=== PATIENT | male | born 1940 | race Caucasian/White ===

== ENCOUNTER → 2018-04-16 11:16 | Outpatient (CLI) | payer MEDICARE, SELFPAY ==
--- NOTE | 2018-04-16 07:17 | PET_ITS ---
EXAMINATION: FDG PET CT INDICATIONS: A 77-year-old male with reported history of lymphoma presenting for initial staging examination. COMPARISON EXAMINATION: None available. INDEX LESION SIZE LUGANO SCORE SUV INTERPRETATION Right axilla, supraclavicular regions soft tissue adenopathy, lymph nodes 16.1 mm x 29.6 mm largest (frame 224) 4 2.5 (max) Fulfills quantitative criteria for viable neoplasm Left inguinal region 7.9 mm x 9.6 mm largest (frame 41) 5 4.2 (max) Fulfills quantitative criteria for viable neoplasm NON-INDEX LESION SIZE LUGANO SCORE SUV INTERPRETATION Lower pelvis prostate gland 27.1 mm (frame 55) X 6.0 May be further investigated with digital examination or potentially Axumin PET CT TECHNIQUE: Following the intravenous administration of 13.14 mCi of F-18 deoxyglucose via the left antecubital fossa, multiplanar image acquisitions of the neck, chest, abdomen and pelvis to level of mid thigh, obtained at one hour post radiopharmaceutical administration contemporaneously interpreted with the current CT of the neck, chest, abdomen and pelvis to level of mid thigh, dated 04/16/18 via coregistration reveal: SERUM GLUCOSE LEVEL: 110 mg/dl. HEIGHT: 71 inches. WEIGHT: 232 lbs. FINDINGS: 1. Multifocal increased FDG concentration is defined in the right axilla and right supraclavicular region generating a calculated maximum standard uptake value of 2.5. The Lugano-Deauville score is 4. The maximal axial diameter of the largest individual hypermetabolic soft tissue density on review of CT of the chest dated 04/16/18 is 16.1 mm (transverse) x 29.6 mm (AP). 2. There is enhanced fluorine-labeled glucose uptake noted in the left inguinal region. The calculated maximum standard uptake value is 4.2. The Lugano-Deauville score is 5. The maximal axial diameter of the corresponding soft tissue density on review of CT of the pelvis dated 04/16/18 is 7.9 mm (transverse) x 9.6 mm (AP). 3. There is an asymmetric increase in radiopharmaceutical concentration noted in the lower pelvis caudal to the urinary bladder contiguous to the prostate gland to the right of the midline posteriorly. The calculated maximum standard uptake value is 6.0. The Lugano-Deauville score is X. The maximal axial diameter of the metabolic abnormality on review of CT of the pelvis dated 04/16/18 is 27.1 mm (AP). 4. Normal physiologic distribution of the radiopharmaceutical is apparent in the hepatic (2.9) and splenic parenchyma, both renal units, bladder and visualized intestinal tract. There is symmetric and preserved glucose metabolism noted in the visualized portion of the frontal, occipital, temporal and parietal lobes of the cerebral cortex, as well as cerebral hemispheres and basal ganglia. Diffuse intestinal tract activity is noted throughout all four quadrants of the abdominal-pelvic retroperitoneum, mesentery consistent with normal physiologic distribution of the radiopharmaceutical. Prominent glucose metabolism is defined in the subcarinal mediastinum to the left of the midline, which appears contiguous to the left atrial myocardial appendage. There is an increase in glucose metabolism manifest in the ascending and descending thoracic, as well as abdominal aorta, most consistent with activated leukocytes associated with atherosclerotic plaque formation. Pertinent CT findings are as follows. CHEST: There is evidence of prior median sternotomy. Coronary arterial calcification is observed. Atherosclerotic calcification is defined in the thoracic aorta. The maximal axial diameter of the ascending thoracic aorta is 48.2 mm (AP). Apparent postsurgical change is defined in the right axilla associated with seroma formation with surgical clip placement. There are no parenchymal densities-nodules defined in the right-left hemithorax demonstrating discernible, quantitatively significant increased glucose metabolism. ABDOMEN AND PELVIS: The gallbladder is surgically absent. There is borderline fatty metamorphosis defined within the hepatic parenchyma. Atherosclerotic calcification is defined in the abdominal aorta without evidence of dilatation, aneurysm formation. Pelvic arterial calcification is observed. Bilateral fat-containing inguinal hernias are noted. Right and additional left inguinal soft tissue densities are ametabolic. Dystrophic calcification is manifest within the prostate gland. Retained oral contrast material is noted in the visualized intestinal tract. Calcified phlebolith formation is noted in the right-left lower hemipelvis. SKELETAL: Degenerative changes defined in the cervical, thoracic and lumbar spine demonstrate no evidence for glucose hypermetabolism. PET/PET/CT Tumor Base -Thigh Init IMPRESSION: 1. ABNORMAL EXAMINATION INDICATIVE OF MALIGNANT-VIABLE NEOPLASM. 2. Increased glucose concentration defined in the right axilla and supraclavicular lymph node distributions fulfills quantitative criteria for viable neoplasm. 3. Neoplastic infiltration appears evident in the left inguinal region corresponding to soft tissue lymph nodes. 4. Facilitated radiopharmaceutical concentration noted in the lower pelvis contiguous to the prostate gland posteriorly may be further investigated with digital examination or potentially 18F fluciclovine PET CT imaging. (Ronnie et al, Journal of Nuclear Medicine 55:1986, 2014). 5. Prominent glucose concentration observed in the ascending and descending thoracic, as well as abdominal aorta is commensurate with activated leukocytes associated with atherosclerotic plaque formation. (Padmini childs al, Clinical Nuclear Medicine 29:93, 2004). Electronic Signature Lukas Colin D.O. Electronically Signed: Lukas Colin DO at 23:26 EST Tel , Service support ,
== END ==
PROVIDERS: Visit Provider Internal Medicine Hematology & Oncology
DX: C82.14 Follicular lymphoma grade II, lymph nodes of axilla and upper limb (principal)
CPT/HCPCS: 78815; A9552

== ENCOUNTER → 2018-10-15 | Outpatient (CLI) | payer MEDICARE, SELFPAY ==
--- NOTE | 2018-10-15 10:30 | PET_ITS ---
EXAMINATION: FDG PET CT INDICATIONS: A 78-year-old male with reported history of lymphoma presenting for restaging examination. COMPARISON EXAMINATION: Previous FDG PET CT study dated 04/16/18. TECHNIQUE: Following the intravenous administration of 15.01 mCi of F-18 deoxyglucose via the right antecubital fossa, multiplanar image acquisitions of the neck, chest, abdomen and pelvis to level of mid thigh, obtained at one hour post radiopharmaceutical administration contemporaneously interpreted with the current CT of the neck, chest, abdomen and pelvis to level of mid thigh, dated 10/15/18 via coregistration and previous FDG PET study dated 04/16/18 reveal: SERUM GLUCOSE LEVEL: 93 mg/dl. HEIGHT: 70 inches. WEIGHT: 232 lbs. FINDINGS: 1. There is no quantitative scintigraphic evidence of abnormal increased glucose metabolism on meticulous inspection of whole body acquisitions to include all three axis reconstructions. 2. Normal physiologic distribution of the radiopharmaceutical is apparent in the hepatic and splenic parenchyma, both renal units, bladder and visualized intestinal tract. There is uniform distribution of the radiopharmaceutical concentration defined in the visualized cerebellar hemispheres and cerebral cortical structures.? Diffuse intestinal tract activity is noted throughout all four quadrants of the abdominal-pelvic retroperitoneum, mesentery consistent with normal physiologic distribution of the radiopharmaceutical. The previously identified hypermetabolic abnormalities noted in the right axilla and left inguinal regions are not apparent on the current examination. There is persistent visualization of the left and right ventricular myocardium and left atrial myocardial appendage. There is evidence of right-left hemithorax pleural effusions without facilitated FDG uptake identified. The prior defined morphologic-anatomic changes noted on CT of the neck, chest, abdomen and pelvis manifest on the FDG PET CT study dated 04/16/18 are essentially unchanged on the present examination. PET/PET/CT Tumor Base -Thigh Subs IMPRESSION: 1. NEGATIVE EXAMINATION. There is no definitive quantitative scintigraphic evidence of recurrent-viable neoplasm. 2. There is interim metabolic resolution of the prior defined left inguinal and right axillary hypermetabolic foci. 3. Overall, compared to the previous FDG PET study dated 04/16/18, there is current absence of defined viable neoplastic disease with an interval quantitative complete metabolic response relating to all prior defined hypermetabolic foci. Electronic Signature Lukas Colin D.O. Electronically Signed: Lukas Colin DO at 23:23 EDT Tel , Service support ,
== END | disposition home or self-care (01) ==
LOC: ONC 10:22
PROVIDERS: Referring Provider Internal Medicine Hematology & Oncology; Visit Provider Internal Medicine Hematology & Oncology
DX: C82.18 Follicular lymphoma grade II, lymph nodes of multiple sites (principal)
CPT/HCPCS: 78815; A9552

== ENCOUNTER 2019-01-23 12:23 | Inpatient (IN) | payer MEDICARE, SELFPAY ==
[2019-01-23] VITALS (10 sets, daily range): BP systolic 95–140; BP diastolic 60–90; PULSE 76–119; RESP 16–22; TEMP 36.1–36.7; O2SAT 94–98; BMI 30.7; BMI 30.4
--- NOTE | 2019-01-23 13:41 | EKG12_ITS ---
Test Reason : SOB Blood Pressure : / mmHG Vent. Rate : 102 BPM Atrial Rate : 111 BPM P-R Int : 208 ms QRS Dur : 156 ms QT Int : 420 ms P-R-T Axes : 000 -55 -08 degrees QTc Int : 547 ms Sinus tachycardia with Premature supraventricular complexes and with frequent Premature ventricular c omplexes Right bundle branch block Left anterior fascicular block Bifascicular block Abnormal ECG Confirmed by GAYLA JARRETT, KATELYN ([id number]), photograph editor RAVINDRA WEBER ([id number]) on 01/30/2019 10:14:08 AM Referred By: Joseline Joseph Confirmed By:KATELYN SHUKLA MD
--- NOTE | 2019-01-23 13:45 | RAD_ITS ---
STUDY: X-RAY CHEST REASON FOR EXAM: Male, 78 years old. Shortness of breath/dyspnea. Weakness. TECHNIQUE: Single AP portable view of the chest. COMPARISON: None. FINDINGS: EKG electrodes are seen. Surgical clips are seen in the right axillary region. There is elevation of the right hemidiaphragm. Small to moderate right pleural effusion with underlying infiltration and/or atelectasis. Question of a 4.8 cm x 4.7 cm nodular mass in the posterior medial segment of the left lower lobe. Sternal cerclage wires and vascular clips are present from a prior sternotomy and coronary artery bypass graft procedure (CABG). Moderate cardiomegaly. Normal mediastinum and lee. Normal visualized pulmonary arteries. There is atherosclerotic calcification of the aortic arch with tortuosity. There are diffuse degenerative changes of the visualized thoracic spine. Normal visualized ribs, clavicles, and shoulders. There is no demonstrated abnormality of the visualized soft tissue structures of the upper abdomen. RAD/Chest 1 View (Portable) IMPRESSION: Right pleural effusion with underlying infiltration and/or atelectasis. Questionable 4.8 cm x 4.7 cm nodular density in the posteromedial aspect of the left lower lobe. Electronically Signed: Korey Nice, at 14:11 EDT , Service support ,
[2019-01-23] MEDS: Ipratropium/Albuterol Sulfate 3 ML AMPUL.NEB INHALATION (13:47)
[2019-01-23 13:52] LABS: Absolute Lymphocyte Count 0.33 X10^3/uL (0.83-4.51); Basophil# 0.03 X10^3/uL; Basophil% 0.6 % (0-1); Eosinophil# 0.09 X10^3/uL; Eosinophils% 1.7 % (0-5); Hematocrit 36.9 % (40-54); Hemoglobin 12.1 g/dL (13.0-16.5); Lymphocyte # 0.33 X10^3/ul (4.0); Lymphocyte % 6.3 % (19-41); Mean Corp Hgb Conc 32.8 g/dL (32-36); Mean Corpuscular Hgb 31.2 pg (27.0-32.0); Mean Corpuscular Volume 95.1 fL (80-94); Mean Platelet Vol. 10.9 fl (6.2-12.0); Monocyte# 0.79 X10^3/uL; NRBC Flagged by Analyzer 0 % (0-5); Neutrophil # 4.01 X10^3/uL (2.7-7.7); Neutrophil % 76.2 % (47-70); POSITIVE DIFFERENTIAL YES; Platelet Count 220 K/mm3 (150-450); RBC Distribution Width CV 18.4 % (11.6-14.6); RBC Distribution Width SD 63.1 fl (35.1-43.9); Red Blood Count 3.88 M/mm3 (4.6-6.2); White Blood Count 5.3 K/mm3 (4.4-11.0)
[2019-01-23 13:53] LABS: Differential Indicated SCAN CRITERIA MET
[2019-01-23 14:08] LABS: Anion Gap 6 (5-15); BUN 17 mg/dL (7-18); BUN/Creat Ratio 17.2 RATIO (10-20); Chloride 106 mmol/L (98-107); Creatinine, Serum 0.99 mg/dL (0.70-1.30); EST Glomerular Filtration Rate 78 mL/min (>60); Est Glom Filt Rate - Afr Amer 94 mL/min (>60); Glucose 102 mg/dL (74-106); Sodium Level 142 mmol/L (136-145)
[2019-01-23 14:17] LABS: Hypochromasia RARE; Platelet Estimate ADEQUATE (ADEQ); Schistocytes 1+
[2019-01-23 14:38] LABS: BNP,B-Type NATRIURETIC PEPTIDE 830.1 pg/mL (0-100)
--- NOTE | 2019-01-23 14:53 | ED.VISSUMM ---
- ER Visit Summary Date of Service: 01/23/19 Chief Complaint: [Fatigue and shortness of breath] History of Present Illness: The patient is a 78 M [resents to the emergency department with increasing shortness of breath over the last 2 to 3 months. Patient seen by his oncologist today and referred to the emergency department for evaluation of his irregular and fast heart rate. Patient complains of exertional dyspnea. He denies any chest pain. Patient currently being treated for non-Hodgkin's lymphoma and his last maintenance chemo therapy was in October. Patient has history of A. fib and is currently on Xarelto. Patient with prior history of 5 vessel CABG.] Physical Examination: [HEENT-PERRLA, EOMI. Cranial nerves II through XII grossly intact. TMs clear. Mucous membranes moist. No adenopathy. Cardiovascular-regular rate with frequent ectopy. Patient has 2/6 systolic ejection murmur. Lungs-decreased breath sounds in the right base. Patient has rales in the right base. Patient has some mild tachypnea. No accessory muscle use or retractions. Abdomen-normoactive bowel sounds, soft, nontender, no rebound or rigidity, no peritoneal signs. Extremities-intact ?4, normal range of motion, normal pulses, atraumatic. Patient has +2 edema both lower extremities. Patient has ulcerations to both lower extremities and some faint erythema.] Test Results: [EKG obtained arrival shows sinus rhythm with a ventricular rate of 102 bpm with frequent PVCs noted. Chest x-ray showed right sided effusion with questionable 4.8 x 4.7 cm mass in the left lower lobe. Patient was noted to have cardiomegaly. CBC with differential showing a 5.3, hemoglobin 12, hematocrit 37, platelets 220. Chemistries unremarkable. BUN was 17 and creatinine 0.99. Troponin was 0.019. BNP was elevated at 830.] Emergency Department Course and Treatment: [Patient was given Lasix 80 mg IV.] Treatment Plan: [Admit for further treatment of suspected congestive heart failure.] Disposition: [Admit] Impression: [CHF exacerbation Generalized weakness Left lower lobe lung mass] This note was generated with [employer] dictation software. It may contain incorrect words, spelling, and punctuation that were not noted in review of the chart prior to signing ED Disposition - Plan for ED Patient: Referrals: Maggie Jain, BLUE[employer] MACHINE OPERATOR-C [Primary Care Provider] -
--- NOTE | 2019-01-23 15:10 | HP.PCM_ITS ---
History of Present Illness Date of Admission: 01/23/19 Chief Complaint: shortness of breath The patient is a 78 year old M with a past medical history as listed. He was admitted through the ED on 01/23/2019 from his oncologist office on account of an irregular and fast heart rate. Patient is being managed for non-Hodgkin's lymphoma and also has a history of A. fib on Xarelto. He complains of shortness of breath over the last 2 to 3 months which is gradually been worsening. This was worsened by exertion and relieved by rest bradycardia have any associated chest pain. He went to see his oncologist today and was found to be having an irregular and fast heart rate and so he was sent to the emergency room. History was mainly taken from patient's daughter as patient was very upset because he said he wanted food. 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 Review of systems is otherwise negative. In the ED, CBC showed hemoglobin of 12 with platelets of 220 and white cell count of 5.3. Chemistry was essentially unremarkable with creatinine of 0.99 Initial troponin was 0.019, and BNP was 830. EKG showed sinus rhythm with a heart rate of 102 and frequent PVCs and chest x-ray showed a right-sided pleural effusion with a questionable 4.8 x 4 cm mass in the left lower lobe. He has been admitted to manage for probable A. fib and acute heart failure with unknown EF. [] Past Medical History Allergies No Known Allergies Allergy (Verified 01/23/19 12:27) Home Medications: Ambulatory Orders Medication Instructions Recorded Furosemide [Lasix] 40 mg PO DAILY 01/23/19 Metoprolol Tartrate [Lopressor 12.5 mg PO DAILY 01/23/19 (beta anitha)] Multivitamin with Minerals 1 tab PO DAILY 01/23/19 [Multiple Vitamin] York-3/Dha/Epa/Fish Oil [Fish Oil 1 ea PO DAILY 01/23/19 1,000 mg Softgel] Potassium Chloride 10 meq PO DAILY 01/23/19 Rivaroxaban [Xarelto] 20 mg PO DAILY 01/23/19 Simvastatin 10 mg PO DAILY 01/23/19 Psychiatric History: No pertinent psych hx Lives: Alone Smoking Status: Former smoker Alcohol: None Drugs: None - *Family History Maternal History Items: Cancer - mother had melanoma Review of Systems Constitutional: Denies: Chills, Fever, Malaise, Weakness, Weight Change Eyes: Denies: Blurred vision HEENT: Denies: Head Aches, Sinus Congestion, Sinus Drainage Cardiovascular: Reports: Palpitations. Denies: Chest Pain, Chest Pressure, Chest Tightness, Edema, Orthopnea, Syncope Respiratory: Reports: Shortness of Breath, Shortness of breath upon exertion. Denies: Cough Gastrointestinal: Denies: Abdominal Pain, Nausea, Vomiting Genitourinary: Denies: Dysuria Musculoskeletal: Denies: Joint Pain, Joint Tenderness Skin: Denies: Rash, Wounds Neurological: Denies: Numbness, Tingling, Focal weakness Psychiatric: Denies: Anxiety, Depression, Homicidal Ideations, Suicidal Ideations Hematologic/ Lymphatic: Denies: Easy Bruising, Easy Bleeding VTE Information - Inpt Only VTE Present on Admission: No VTE Pharm Prophylaxis ordered?: Yes - Physical Exam Vitals/I&O's: Vital Signs Temp Pulse Resp BP Pulse Ox 97.9 F 84 20 H 117/80 96 01/23/19 12:24 01/23/19 14:37 01/23/19 14:37 01/23/19 14:37 01/23/19 14:37 Oxygen Delivery Method Room Air Weight: 220 lb Body Mass Index (BMI) 30.7 General: Alert, Oriented x3, Cooperative, No apparent distress HEENT: Atraumatic, PERRLA, EOMI, Normocephalic Oral: Dry Mucosa Neck: Supple, No JVD, Negative Carotid Bruits Lungs: - - Markedly decreased breath sounds in right lower lung base. No crackles. Cardiovascular: Regular Rhythm, Normal S1, Normal S2, Tachycardic Abdomen: Bowel Sounds Present, Soft, Non Tender Extremities: No clubbing, No cyanosis, No edema, Capillary Refill Less than 3 Seconds Skin: - - Skin is dry and scaly with superficial ulceration due to possible scratching of lower extremities. Mild 1+ bipedal edema Musculoskeletal: No Tenderness to Palpation of Joints or Extremities Lymphatic: No Cervical, Supraclavicular, or Inguinal Adenopathy Neurological: Cranial nerves II-XII grossly intact, Neuro grossly intact, Motor Exam 5/5 strength throughout Psych/Mental Status: Normal Affect, Appropriate, Alert and oriented to time, place, person, mood and affect Laboratory Results 01/23/19 13:25: WBC 5.3, RBC 3.88 L, Hgb 12.1 L, Hct 36.9 L, MCV 95.1 H, MCH 31.2, MCHC 32.8, RDW Std Deviation 63.1 H, RDW Coeff of Leroy 18.4 H, Plt Count 220, MPV 10.9, Immature Gran % (Auto) 0.200, Neut % (Auto) 76.2 H, Lymph % (Auto) 6.3 L, [place] % (Auto) 15.0 H, Eos % (Auto) 1.7, Baso % (Auto) 0.6, Absolute Neuts (auto) 4.0, Absolute Lymphs (auto) 0.33 L, Nucleated RBC % 0, Platelet Estimate ADEQUATE, Hypochromasia RARE, Schistocytes 1+ 01/23/19 13:25: Sodium 142, Potassium 4.0, Chloride 106, Carbon Dioxide 30.0, Anion Gap 6, BUN 17, Creatinine 0.99, Estim Creat Clear Calc 65.50, Est GFR (MDRD) Af Amer 94, Est GFR (MDRD) Non-Af 78, BUN/Creatinine Ratio 17.2, Glucose 102, Calcium 9.0, Troponin I 0.019 01/23/19 13:25: B-Natriuretic Peptide 830.1 H Diagnostic Data Chest X-Ray 01/23/19 13:45 IMPRESSION: Right pleural effusion with underlying infiltration and/or atelectasis. Questionable 4.8 cm x 4.7 cm nodular density in the posteromedial aspect of the left lower lobe. Electronically Signed: Korey Nice, at 14:11 EDT , Service support , Current Medications Sodium Chloride () 1,000 mls @ 15 mls/hr IV .Q48H [facility] Assessment/Plan 78-year-old male admitted with complaint of shortness of breath and rapid heart rate. 1. Acute on chronic heart failure * EF unknown * admit to PCU with telemetry * BNP is ~ 830. EKG showed no acute ST changes and showed sinus tachycardia with PVCs. * Initial troponin was also negative. * Cycle troponins. Diuresed with IV Lasix 40 mg twice daily * Monitor intake and output. Fluid restrictions thousand 500 cc. * 2D echo * 2. A. fib with RVR: * Patient has a history of A. fib was referred from his oncologist; office on account of rapid heart rate. * On arrival in ED, EKG showed sinus tachycardia with PVCs. * Per telemetry. 2D echo ordered. Check magnesium and potassium levels. * Currently on Xarelto. will hold. * Continue metoprolol 12.5 mg daily. * 3. History of non-Hodgkin's lymphoma * According to his daughter, he has been told that he is in remission. Diagnosed in April 2018. * He last had maintenance chemotherapy in October 2018. * Follows with Dr. Ureña. * 4. Right pleural effusion * As per x-ray. This is likely due to acute on chronic heart failure. However there was a questionable 4.8 x 4.7 cm nodular density in the posterior medial aspect of left lower lobe. It is unknown if this is new or otherwise. * he will benefit from further imaging with CAT scan once he has been diuresed to help with pleural effusion and to characterise mass better * PET scan done in October 2018 showed right and left hemithorax pleural effusions. * for CT chest tomorrow morning after he has been diuresed DVT prophylaxis: hold xarelto for now just in case he needs thoracentesis or biopsy for pleural effusion and suspected mass respectively. Lovenox Code status: full code * Patient counseled extensively about different types of CODE STATUS including full code, DNR CCA and DNR CCA. Patient elects to be full code. Total [id number] time 18 minutes. Code Visit Inpatient E&M: 67600 Init Hosp L3 Procedures: 89586 Advncd Care Plan 30 Min
[2019-01-23] MEDS: Furosemide 100 MG/10 ML Vial 80 MG IV (15:41)
--- NOTE | 2019-01-23 16:05 | ECHOCS_ITS ---
Reason For Study: CHF Procedure This was a 2D Doppler, Color Flow transthoracic echocardiogram. The study was technically difficult. Due to body habitus. Contrast injection was performed. Left Ventricle Mildly dilated left ventricle. Concentric left ventricular hypertrophy. The estimated ejection fraction is 30 %. There is evidence of diastolic dysfunction. There is moderate to severe global hypokinesis of the left ventricle. Right Ventricle Mildly dilated right ventricle. Normal systolic function. Atria The left atrium is mildly enlarged. The right atrium is mildly enlarged. No doppler evidence for ASD. Mitral Valve There is no mitral valve stenosis. No mitral valve insufficiency. Tricuspid Valve There is no tricuspid stenosis. Trivial tricuspid valve insufficiency. Pulmonary artery systolic pressure is 35 mmHg. Aortic Valve Trisinus/trileaflet aortic valve. Aortic sclerosis, no stenosis. There is no aortic stenosis. No aortic valve insufficiency. Pulmonic Valve There is no pulmonic valvular stenosis. No pulmonic valve insufficiency. Great Vessels Normal aortic root. Pericardium/Pleural No pericardial effusion. Medication Diluted definity 5.0ml given slow IV push to enhance endocardial definition. MMode/2D Measurements & Calculations LVIDd: 5.6 cm IVSd: 1.4 cm Ao root diam: 4.5 cm LVIDs: 4.4 cm LVPWd: 1.4 cm RVDd: 4.6 cm FS: 21.2 % LAV(MOD-bp): 71.7 ml LA A4 area: 22.5 cm2 LA dimension(2D): 4.6 cm LAV(MOD-bp) Indexed: 32.8 ml/m2 LAV(MOD-sp2): 73.9 ml LAV(MOD-sp4): 67.7 ml RA A4 area: 23.6 cm2 Doppler Measurements & Calculations MV E max dora: 118.0 cm/sec Ao V2 max: 114.8 cm/sec LV V1 max: 62.4 cm/sec Ao max P.3 mmHg LV V1 max P.6 mmHg MR max dora: 404.5 cm/sec PA V2 max: 70.4 cm/sec TR max dora: 198.5 cm/sec MR max P.4 mmHg TR max P.8 mmHg Interpretation Summary The study was technically difficult. Diluted definity 5.0ml given slow IV push to enhance endocardial definition. Mildly dilated left ventricle. Concentric left ventricular hypertrophy. The estimated ejection fraction is 30 %. There is evidence of diastolic dysfunction. There is moderate to severe global hypokinesis of the left ventricle. The left atrium is mildly enlarged. The right atrium is mildly enlarged. The study was technically difficult. Ordering Physician: Joseline Joseph Referring Physician: Maggie Guerra Performed By: Lala Bolden, ELEUTERIO, RVT
[2019-01-23 16:32] LABS: Magnesium 2.4 mg/dL (1.6-2.6)
[2019-01-23] MEDS: Metoprolol Tartrate 25 MG Tablet 12.5 MG PO (17:39)
[2019-01-23] MEDS: Atorvastatin Calcium 10 MG Tablet 5 MG PO (21:47)
[2019-01-24] VITALS (13 sets, daily range): BP systolic 99–121; BP diastolic 59–74; PULSE 56–118; RESP 16–18; TEMP 36.2–36.4; O2SAT 92–99
[2019-01-24] MEDS: Enoxaparin 40 MG/0.4 ML Syringe SC (05:12)
--- NOTE | 2019-01-24 05:28 | NURSING ---
Took patient on short walk around unit with use of walker, tolerated well.
[2019-01-24 06:18] LABS: Absolute Lymphocyte Count 0.32 X10^3/uL (0.83-4.51); Basophil# 0.04 X10^3/uL; Basophil% 0.8 % (0-1); Eosinophils% 1.9 % (0-5); Hemoglobin 12.1 g/dL (13.0-16.5); Lymphocyte # 0.32 X10^3/ul (4.0); Lymphocyte % 6.1 % (19-41); Mean Corpuscular Hgb 29.3 pg (27.0-32.0); Mean Corpuscular Volume 94.4 fL (80-94); Mean Platelet Vol. 10.9 fl (6.2-12.0); Monocyte% 15.3 % (0-10); NRBC Flagged by Analyzer 0 % (0-5); Neutrophil # 3.96 X10^3/uL (2.7-7.7); Neutrophil % 75.5 % (47-70); POSITIVE DIFFERENTIAL YES; Platelet Count 248 K/mm3 (150-450); RBC Distribution Width CV 17.9 % (11.6-14.6); RBC Distribution Width SD 62.6 fl (35.1-43.9); Red Blood Count 4.13 M/mm3 (4.6-6.2); White Blood Count 5.2 K/mm3 (4.4-11.0)
[2019-01-24 06:30] LABS: Differential Indicated SCAN CRITERIA MET
[2019-01-24 06:35] LABS: Anion Gap 5 (5-15); BUN 18 mg/dL (7-18); BUN/Creat Ratio 16.2 RATIO (10-20); Calcium,Total 8.8 mg/dL (8.5-10.1); Chloride 106 mmol/L (98-107); Creatinine, Serum 1.11 mg/dL (0.70-1.30); EST Glomerular Filtration Rate 68 mL/min (>60); Est Glom Filt Rate - Afr Amer 82 mL/min (>60); Estimated Creatinine Clearance 58.42 ml/min; Glucose 110 mg/dL (74-106); Magnesium 2.4 mg/dL (1.6-2.6); Potassium 3.8 mmol/L (3.5-5.1); Sodium Level 143 mmol/L (136-145)
[2019-01-24 07:13] LABS: Differential Comment SCANNED
--- NOTE | 2019-01-24 07:50 | PN_ITS ---
Subjective: The patient is a 78-year-old male who was sent to the emergency department at [facility] on 01/23/2019 from his oncologist office for an irregular fast heart rate. His past medical history is significant for non- Hodgkin's lymphoma, paroxysmal atrial fibrillation and chronic anticoagulation with Xarelto. Vital signs at presentation to the emergency department were temperature 97.9, pulse rate 118, blood pressure 121/75, respiratory rate 22 and he was 98% saturated on room air. Admitting labs showed a white blood cell count of 5.3, hemoglobin of 12.1 and normal platelets. BMP was unremarkable. The BNP was elevated at 830. Chest x-ray showed a large right pleural effusion with possible underlying infiltration and/oral atelectasis. Questionable nodular density in the posterior medial aspect of the left lower lobe. PET scan in October 2018 was negative. EKG showed sinus rhythm with a heart rate of 102 and frequent PVCs. He was admitted to the hospital with a diagnosis of acute on chronic heart failure with large right pleural effusion. He was admitted to a monitored bed on PCU and was placed on fluid restriction and IV Lasix and a 2D echocardiogram was ordered. Xarelto was placed on hold for possible diagnostic and therapeutic thoracentesis. All events of the past 24 hours been reviewed. Afebrile since admission. The heart rate is erratic and has ranged from 56-1 19 since admission. Blood pressures are stable. All lab was personally reviewed. White blood cell count remains normal at 5.2. Differential is unremarkable. Hemoglobin is stable at 12.1 and platelets remain within normal limits. The BMP once again is unremarkable. BUN is 18 with a creatinine of 1.11, up from 0.99 on 01/23/2019. Echocardiogram showed a mildly dilated left ventricle with an estimated ejection fraction of 30%. There is concentric left ventricular hypertrophy. There was evidence for diastolic dysfunction. There were no focal wall motion abnormalities and there was global hypokinesis of the left ventricle. The left atrium and right atrium were both mildly enlarged. No significant valvular heart disease. Telemetry shows AF/AFlutter with PVC's and the rate is not optimally controlled yet. - Physical Exam Vitals/I&O's: Vital Signs Temp Pulse Resp BP Pulse Ox 97.6 F L 86 16 121/74 H 92 01/24/19 03:46 01/24/19 06:00 01/24/19 03:46 01/24/19 03:46 01/24/19 03:46 Oxygen Delivery Method Room Air Weight: 218 lb 14.704 oz Body Mass Index (BMI) 30.4 Intake and Output for Last 24 Hours 01/22/19 01/23/19 01/24/19 23:59 23:59 23:59 Intake Total 240 / 240 60 / 60 Output Total 250 / 250 Balance - -10 60 / 60 General: Alert, Oriented x3, Cooperative, - - forgetful....tells me that he has been in the hospital for 3-4 days and he has only been here for 1 day HEENT: Atraumatic, PERRLA, EOMI, Normocephalic Oral: No Gingival or Mucosal Lesions/ Ulcerations Neck: Supple, No Nuchal Rigidity, Trachea Midline Lungs: No wheeze, No rales, Diminished - very diminished in the bases BL, - - There is symmetric chest expansion. He is not tachypneic, has no conversational dyspnea and is not using accessory muscles of respiration. Cardiovascular: Normal S1, Normal S2, No murmurs, Irregular Rate, No Gallop, - - Telemetry shows atrial fibrillation/flutter with rapid ventricular response. He has PVCs and occasional nonsustained ventricular tachycardia. Abdomen: Bowel Sounds Present, Soft, Non Tender, Non-Distended Extremities: No clubbing, No cyanosis, Edema - he has pitting edema of both LE's that extends into the posterior thighs. He is not elevating his legs and he has no compression stockings or TEDs on. Skin: - - he has stasis dermatitis of the Legs with dry flakey skin Neurological: Cranial nerves II-XII grossly intact, Neuro grossly intact Psych/Mental Status: Appropriate Laboratory Results 01/23/19 13:25: WBC 5.3, RBC 3.88 L, Hgb 12.1 L, Hct 36.9 L, MCV 95.1 H, MCH 31.2, MCHC 32.8, RDW Std Deviation 63.1 H, RDW Coeff of Leroy 18.4 H, Plt Count 220, MPV 10.9, Immature Gran % (Auto) 0.200, Neut % (Auto) 76.2 H, Lymph % (Auto) 6.3 L, [place] % (Auto) 15.0 H, Eos % (Auto) 1.7, Baso % (Auto) 0.6, Absolute Neuts (auto) 4.0, Absolute Lymphs (auto) 0.33 L, Nucleated RBC % 0, Platelet Estimate ADEQUATE, Hypochromasia RARE, Schistocytes 1+ 01/23/19 13:25: Sodium 142, Potassium 4.0, Chloride 106, Carbon Dioxide 30.0, Anion Gap 6, BUN 17, Creatinine 0.99, Estim Creat Clear Calc 65.50, Est GFR (MDRD) Af Amer 94, Est GFR (MDRD) Non-Af 78, BUN/Creatinine Ratio 17.2, Glucose 102, Calcium 9.0, Troponin I 0.019 01/23/19 13:25: B-Natriuretic Peptide 830.1 H 01/23/19 13:25: Magnesium 2.4 01/23/19 17:23: Troponin I 0.015 01/23/19 20:33: Troponin I 0.016 01/24/19 05:25: WBC 5.2, RBC 4.13 L, Hgb 12.1 L, Hct 39.0 L, MCV 94.4 H, MCH 29.3, MCHC 31.0 L, RDW Std Deviation 62.6 H, RDW Coeff of Leroy 17.9 H, Plt Count 248, MPV 10.9, Immature Gran % (Auto) 0.400, Neut % (Auto) 75.5 H, Lymph % (Auto) 6.1 L, [place] % (Auto) 15.3 H, Eos % (Auto) 1.9, Baso % (Auto) 0.8, Absolute Neuts (auto) 4.0, Absolute Lymphs (auto) 0.32 L, Nucleated RBC % 0, Differential Comment SCANNED 01/24/19 05:25: Sodium 143, Potassium 3.8, Chloride 106, Carbon Dioxide 32.0, Anion Gap 5, BUN 18, Creatinine 1.11, Estim Creat Clear Calc 58.42, Est GFR (MDRD) Af Amer 82, Est GFR (MDRD) Non-Af 68, BUN/Creatinine Ratio 16.2, Glucose 110 H, Calcium 8.8, Magnesium 2.4 Current Medications Albuterol Sulfate (Ventolin Aerosols) 2.5 mg INHALATION Q2H PRN PRN PRN Reason: Shortness of Breath/Wheezing Atorvastatin Calcium (Lipitor) 5 mg PO QHS REPLACED BY [facility] Last Admin: 01/23/19 21:47 Dose: 5 mg Documented by: Dextrose (D50w Syringe) 0 gm IV X1 PRN; Protocol PRN Reason: Hypoglycemia Emollient Ointment (Eucerin Intensive Repair) 1 applic TOPICAL BID REPLACED BY [facility]; Protocol Last Admin: 01/23/19 21:47 Dose: 1 applicatio Documented by: Enoxaparin Sodium (Lovenox) 40 mg SC DAILY@0600 REPLACED BY [facility] Last Admin: 01/24/19 05:12 Dose: 40 mg Documented by: Furosemide (Lasix) 40 mg IV BID@1000,1800 REPLACED BY [facility] Last Admin: 01/23/19 17:20 Dose: Not Given Documented by: Glucagon () 1 mg IM .X1 PRN PRN Reason: Hypoglycemia Sodium Chloride () 1,000 mls @ 15 mls/hr IV .Q48H REPLACED BY [facility] Last Admin: 01/23/19 15:41 Dose: Not Given Documented by: Metoprolol Tartrate (Lopressor (Beta David)) 12.5 mg PO DAILY REPLACED BY [facility] Last Admin: 01/23/19 17:39 Dose: 12.5 mg Documented by: Multivitamins/Minerals (Multivitamin With Minerals) 1 tablet PO DAILY@0800 REPLACED BY [facility] Nitroglycerin (Nitrostat) 0.4 mg SUBLINGUAL Q5M PRN PRN Reason: CARDIAC/CHEST PAIN Ybouu-9-Glee Ethyl Esters (Lovaza) 1 gm PO DAILY REPLACED BY [facility] Potassium Chloride (K-Dur) 10 meq PO DAILYCM REPLACED BY [facility] Rivaroxaban (Xarelto) 20 mg PO DAILY@1700 REPLACED BY [facility] Sodium Chloride () 10 - 40 ml IV UD PRN PRN Reason: SALINE FLUSH Medical Necessity - Tobacco Use Smoking Status: Former smoker Tobacco Use: Cigars Assessment/Plan Impressions 1. AF/flutter with RVR 2. CM with a 30% ejection fraction and a mildly dilated left ventricle. There was severe global hypokinesis of the left ventricle. There was evidence of diastolic dysfunction and there was mild enlargement of the right and left atrium. This may be secondary to a tachycardia induced cardiomyopathy. 3. Large right pleural effusion with suspected left pleural effusion. The chest film was an AP chest and it is difficult to determine if there is a mass in the left lower lobe. 4. Non-Hodgkin's lymphoma-treated by Dr. Ureña. He last had maintenance chemotherapy in October 2018. 5. Chronic anticoagulation with Xarelto-on hold for possible thoracentesis on 01/25/2019 will also hold the Lovenox started for DVT prophylaxis since the Xarelto is on hold. 6. Acute on chronic systolic congestive heart failure D/W Dtr Tessy. she is thinking with his confusion that he will no longer be able to live by himself. Assisted living vs ECF? suspect he will need to go to SNF at [place] and this will allow her some time to pick an appropriate living situation for him. will D/W the SW in the AM. US for thoracentesis in the AM PT, PTT and repeat lab in the AM Continue IV Lasix. Elevate the legs DERRICK wraps. Consult Dr. Gerardo to participate in management Increase Lopressor to 12.5 mg p.o. twice daily 1 dose of dig [address] scan of the chest for a better picture of what is going on in the bases of the lungs Code Visit Inpatient E&M: 14415 Subs Hosp L3
[2019-01-24] MEDS: Multivitamins,Ther W-Minerals Tablet 1 TABLET PO (07:51)
[2019-01-24 08:29] LABS: AST(SGOT) 9 U/L (15-37); Alanine Aminotransfer ALT/SGPT 14 U/L (16-61); Albumin, Serum 3.4 g/dL (3.2-5.0); Alkaline Phosphatase 124 U/L (45-117); Bilirubin, Direct 0.36 mg/dL (0.00-0.30); Globulin 3.9 g/dL (2.2-4.2); Magnesium 2.4 mg/dL (1.6-2.6); Protein, Total 7.3 g/dL (6.4-8.2)
--- NOTE | 2019-01-24 09:25 | CASEMGMT ---
Assessment- SW spoke with patient and completed assessment with his daughter present. Living situation- Patient lives in a 2 story home with entry steps. His laundry is in the basement. PCP: Dr Maggie Jain Specialists: Dr Thomas-Cardiology and Dr Ureña- Oncology Pharmacy: [facility] DME: [employer]? ADL's/IADL's: Patient has been managing his own medications, he drives, bathes, cooks, and cleans on his own. Past SNF/rehab: None Past HH: Not yet LW: No POA: No SW asked patient questions and his answers were short. When SW asked him about specialists he said he sees some, but SW had to work to get who they were. 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 SW is aware patient has Cancer so SW asked if he sees an Oncologist or Cancer Dr. He said, No. His daughter then spoke up and said he sees Dr Ureña for Oncology. Patient said, Oh he is a Cancer Dr.? He does not have a Healthcare POA or LW. Patient's daughter said he should have these documents. SW told him if he would like to complete them we can help him while he is here. Patient's daughter then spoke up and expressed concern with patient being home alone. She said he is obviously not caring for himself at home and he is not taking his meds right or He wouldn't be here. She is the only child that lives local the others live out of state. They all feel he should not be home alone. He has a wood burning stove and there is no way he will be able to manage that. She said his Neurologist said he is starting to show signs of Alzheimers. They have talked with him to try and get him to move, but he has not. She said he is agreeable to assisted living. They do not want him going home. SW explained that assisted living is private pay and if he goes there that is where he would live so they would need to check out facilities. senior care would need to be approved by insurance and if he is walking well insurance will not approve him to go to a shelter. The other option would be home health. NIKOLE explained what insurance pays for as far as home health. SW also mentioned [facility]. She asked about Medicaid. NIKOLE told her the income limit for community Medicaid is around $770 per month. Patient gets about $1800 a month from Social Security. NIKOLE asked patient what he though about his family's concerns. He said he is fine at home. She said he always says that as he is stubborn. NIKOLE explained SW cannot make patient do anything he does not want to do. She said she understands. NIKOLE explained we can see how he does with therapy and can go from there. Plan: At this point it is undetermined. Patient may have to go home with home health and [facility]. The [employer] can then maybe help get him on the assisted living waiver and eventually into assisted living. All of this is of course if patient agrees. NIKOLE and JULIUS CM to follow. Tess OREILLY MSW
[2019-01-24] MEDS: 0.9% Saline Lock 10 ML Syringe IV ×3 (10:07→20:28)
[2019-01-24] MEDS: Furosemide 40 MG/4 ML Vial IV ×2 (10:07→17:34)
[2019-01-24] MEDS: Omega-3 Acid Ethyl Esters 1 GM Capsule PO (10:07)
[2019-01-24] MEDS: Metoprolol Tartrate 25 MG Tablet 12.5 MG PO ×2 (10:07→21:25)
--- NOTE | 2019-01-24 16:07 | CHAPLAIN ---
Type of Pastoral Visit _x__ Initial Visit ___ Follow-up Visit ___ On-call Visit ___ General Patient Visit ___ Spiritual Assessment ___ Family Conference ___ Bereavement ___ Rapid Response ___ Code Blue ___ Other (describe below) Pastoral Care Referral From _x__ Patient ___ Family ___ Nurse ___ Physician ___ Sharepoint Designer Developer ___ Dye Tub Tender ___ Other (describe below) Sacrament/Intervention ___ Active listening ___ Anointing ___ Islam ___ Bereavement ___ Communion ___ Carolin exploration ___ ___ Life review ___ Prayer ___ Reconciliation ___ Sacrament of Sick _x__ Supportive presence ___ Wedding ___ Other (describe below) Pastoral Comments
--- NOTE | 2019-01-24 19:01 | CT_ITS ---
STUDY: CT CHEST WITHOUT CONTRAST REASON FOR EXAM: Male, 78 years old. Lymphoma. Shortness of breath. RADIATION DOSAGE (If Supplied By Facility): DLP = ( 566.83 ) mGycm TECHNIQUE: Transaxial imaging was performed without the administration of intravenous contrast material. Coronal and sagittal reformatted images were created. Individualized dose optimization techniques were used for this CT. COMPARISON: None available FINDINGS: Evaluation is limited due to motion. There is a moderate to large right-sided pleural effusion. A right perihilar consolidation is present. The left lung is clear. There is a trace left effusion. There are no pulmonary nodules or masses. There is no pneumothorax. There is mild cardiomegaly. Coronary artery calcifications are present. There is no thoracic lymphadenopathy. The ascending aorta measures 4.4 cm in diameter. Ascites is present. There are no destructive osseous lesions. CT/Chest without Contrast IMPRESSION: Limited evaluation due to motion. Moderate to large right-sided pleural effusion. Right perihilar consolidation. Trace left effusion. Mild cardiomegaly. Coronary artery calcifications. 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 Abdominal ascites. Electronically Signed: Reed Umana, at 20:05 EDT Tel , Service support ,
[2019-01-24 19:27] LABS: LDH 311 U/L (87-241)
[2019-01-24] MEDS: Digoxin 250 MCG/ML Ampul IV (20:12)
[2019-01-24] MEDS: Atorvastatin Calcium 10 MG Tablet 5 MG PO (21:23)
[2019-01-25] VITALS (11 sets, daily range): BP systolic 91–118; BP diastolic 53–76; PULSE 67–89; RESP 16–18; TEMP 36.4–36.6; O2SAT 93–100
--- NOTE | 2019-01-25 | FLU_PTH ---
PATIENT: MOOK RICHARDSON LOC: [facility] U#:[id number] AGE/SX: 78/M ROOM: [facility] RE01/23/[address]: Dr. Aiden Gutierrez MD : 1940 BED: 1 DIS: 01/26/2019 SPEC #: [id number] RECD: 01/25/19 14:03 STATUS: HANNAH RETiffany #: [id number] EDINSON: 01/25/19 00:[address]: Aiden Gutierrez DEPT: CYTOLOGY RECD BY: Boyd Gonzalez ENTERED: 01/28/19 09:25 SP TYPE: Fluid OTHR DR: MD Dr. Prem Wood MD Lindsey Lorson, CLINICAL SAFETY SPECIALIST-C Tissues: THORACIC FLUID Procedures: Special Stain Group II Surgery Specimen Level IV Cytospin Fluid HEADER OPERATION: Ultrasound guided right thoracentesis PRE-OP DIAGNOSIS: AFIB, SOB, acute exacerbation TISSUE SUBMITTED: Thoracentesis fluid for cytology DIAGNOSIS CYTOLOGY Thoracentesis fluid for cytology (cytospin and cell block): Negative for malignant cells. SHALOM:mio 01/29/19 CYTOLOGY STUDY Slides are reviewed. CYTOLOGY GROSS Received is 106 ml of yellow hazy fluid labeled with the patient's name and and designated per the requisition as thoracentesis fluid. Submitted for cytology preparation including cell block. /CC:cc 01/28/19 TC:5 CPT: 98370, 25954
--- NOTE | 2019-01-25 07:17 | PN_ITS ---
Patient Problems: Active and Suspected Problems Atrial fibrillation (Acute) LV dysfunction (Acute) Congestive heart failure (Acute) Subjective: Afebrile since admission. Vital signs are stable. He is 97% saturated on room air. Intake and output are not accurate secondary to incontinence. He denies any CP and he also denies SOB. He is going for thoracentesis today....diagnostic and therapeutic. Objective: PHYSICAL EXAM: GENERAL: alert, oriented X 3, Cooperative, NAD, forgetful but pleasant ORAL: moist mucosa, no mucosal lesions NECK: No JVD, supple, trachea midline LUNGS: very diminished in both bases, symmetric chest expansion, tachypneic, no conversational dyspnea. Able to speak in full sentences. HEART: Irregular with good rate control, Normal S1 and S2, no rub, no gallop. Frequent PVCs and atrial fibrillation on telemetry. No sustained ventricular tachycardia ABDOMEN: soft, NT, ND, BS present, no guarding with palpation EXTREMITIES: + edema to the thighs BL, no cyanosis, no calf tenderness SKIN: No rashes, no breakdown NEUROLOGIC: no focal neurologic deficits PSYCH: appropriate, normal affect, pleasant - Physical Exam Vitals/I&O's: Vital Signs Temp Pulse Resp BP Pulse Ox 97.8 F 73 16 104/76 97 01/25/19 03:25 01/25/19 03:25 01/25/19 03:25 01/25/19 03:25 01/24/19 21:25 Oxygen Delivery Method Room Air Weight: 218 lb 14.704 oz Body Mass Index (BMI) 30.4 Intake and Output for Last 24 Hours 01/23/19 01/24/19 01/25/19 23:59 23:59 23:59 Intake Total 240 / 240 1760 / 1760 Output Total 250 / 250 200 / 200 Balance -10 / -10 1560 / 1560 Laboratory Results 01/24/19 05:25: Magnesium 2.4, Total Bilirubin 1.00, Direct Bilirubin 0.36 H, AST 9 L, ALT 14 L, Alkaline Phosphatase 124 H, Total Protein 7.3, Albumin 3.4, Globulin 3.9 01/24/19 05:25: Lactate Dehydrogenase 311 H 01/25/19 06:18: Sodium Pending, Potassium Pending, Chloride Pending, Carbon Dioxide Pending, Anion Gap Pending, BUN Pending, Creatinine Pending, Est GFR (MDRD) Af Amer Pending, Est GFR (MDRD) Non-Af Pending, BUN/Creatinine Ratio Pending, Glucose Pending, Calcium Pending, Total Bilirubin Pending, AST Pending, ALT Pending, Alkaline Phosphatase Pending, Total Protein Pending, Albumin Pending 01/25/19 06:18: PT Pending, INR Pending, APTT Pending Current Medications Albuterol Sulfate (Ventolin Aerosols) 2.5 mg INHALATION Q2H PRN PRN PRN Reason: Shortness of Breath/Wheezing Atorvastatin Calcium (Lipitor) 5 mg PO QHS [facility] Last Admin: 01/24/19 21:23 Dose: 5 mg Documented by: Dextrose (D50w Syringe) 0 gm IV X1 PRN; Protocol PRN Reason: Hypoglycemia Emollient Ointment (Eucerin Intensive Repair) 1 applic TOPICAL BID [facility]; Protocol Last Admin: 01/24/19 21:22 Dose: 1 applicatio Documented by: Furosemide (Lasix) 40 mg IV BID@1000,1800 [facility] Last Admin: 01/24/19 17:34 Dose: 40 mg Documented by: Glucagon () 1 mg IM .X1 PRN PRN Reason: Hypoglycemia Sodium Chloride () 1,000 mls @ 15 mls/hr IV .Q48H [facility] Last Admin: 01/23/19 15:41 Dose: Not Given Documented by: Metoprolol Tartrate (Lopressor (Beta David)) 12.5 mg PO BID [facility] Last Admin: 01/24/19 21:25 Dose: 12.5 mg Documented by: Multivitamins/Minerals (Multivitamin With Minerals) 1 tablet PO DAILY@0800 [facility] Last Admin: 01/24/19 07:51 Dose: 1 tablet Documented by: Nitroglycerin (Nitrostat) 0.4 mg SUBLINGUAL Q5M PRN PRN Reason: CARDIAC/CHEST PAIN Nutritional Formula (Lactose Free) (Ensure Enlive) 120 ml PO 4X/DAY [facility] Last Admin: 01/24/19 21:22 Dose: 120 ml Documented by: Tdnsy-2-Nghu Ethyl Esters (Lovaza) 1 gm PO DAILY [facility] Last Admin: 01/24/19 10:07 Dose: 1 gm Documented by: Potassium Chloride (K-Dur) [facility] Last Admin: 01/24/19 07:51 Dose: 10 meq Documented by: Rivaroxaban (Xarelto) 20 mg PO DAILY@1700 [facility] Sodium Chloride () 10 - 40 ml IV UD PRN PRN Reason: SALINE FLUSH Last Admin: 01/24/19 20:28 Dose: 10 ml Documented by: Medical Necessity - Tobacco Use Smoking Status: Former smoker Tobacco Use: Cigars Assessment/Plan All Active Problems Atrial fibrillation (Acute) LV dysfunction (Acute) Congestive heart failure (Acute) Impressions 1. AF/flutter with RVR 2. CM with a 30% ejection fraction and a mildly dilated left ventricle. There was severe global hypokinesis of the left ventricle. There was evidence of diastolic dysfunction and there was mild enlargement of the right and left atrium. This may be secondary to a tachycardia induced cardiomyopathy. 3. Large right pleural effusion with suspected left pleural effusion. The chest film was an AP chest and it is difficult to determine if there is a mass in the left lower lobe. 4. Non-Hodgkin's lymphoma-treated by Dr. Ureña. He last had maintenance chemotherapy in October 2018. 5. Chronic anticoagulation with Xarelto-on hold for possible thoracentesis on 01/25/2019 will also hold the Lovenox started for DVT prophylaxis since the Xarelto is on hold. 6. Acute on chronic systolic congestive heart failure 7. Hypokalemia-will supplement Thoracentesis today. Dr. Darden will consult today. Lab on the pleural fluid ordered. Restart the Xarelto in the AM Recheck BMP in the AM Code Visit Inpatient E&M: 49564 Subs Hosp L2
[2019-01-25 07:31] LABS: International Normalized Ratio 1.3; Prothrombin Time (Protime)PT. 15.7 SECONDS (11.7-14.9)
[2019-01-25 07:32] LABS: ALB/GLOB Ratio 0.9 RATIO (0.9-2.4); AST(SGOT) 7 U/L (15-37); Alanine Aminotransfer ALT/SGPT 14 U/L (16-61); Albumin, Serum 3.1 g/dL (3.2-5.0); Alkaline Phosphatase 119 U/L (45-117); Anion Gap 7 (5-15); BUN 20 mg/dL (7-18); BUN/Creat Ratio 18.5 RATIO (10-20); Calcium,Total 8.5 mg/dL (8.5-10.1); Chloride 105 mmol/L (98-107); Creatinine, Serum 1.08 mg/dL (0.70-1.30); EST Glomerular Filtration Rate 70 mL/min (>60); Est Glom Filt Rate - Afr Amer 85 mL/min (>60); Estimated Creatinine Clearance 60.04 ml/min; Globulin 3.6 g/dL (2.2-4.2); Glucose 102 mg/dL (74-106); Partial Thromboplast Time 34.3 Seconds (24.1-36.2); Potassium 3.4 mmol/L (3.5-5.1); Protein, Total 6.7 g/dL (6.4-8.2); Sodium Level 142 mmol/L (136-145)
--- NOTE | 2019-01-25 08:53 | CASEMGMT ---
NIKOLE spoke with patient this am. He was sitting up in his chair. SW talked with him about Healthcare POA papers. He said he would want his daughter Tessy as his POA. SW asked if he would like an alternate in case she is not available. He said his oldest son. He said his daughter will be coming in, in a little bit. His breakfast tray was then delivered. SW will check back when his daughter is present. Tess OREILLY MSW
[2019-01-25] MEDS: Omega-3 Acid Ethyl Esters 1 GM Capsule PO (08:55)
[2019-01-25] MEDS: Multivitamins,Ther W-Minerals Tablet 1 TABLET PO (08:55)
[2019-01-25] MEDS: Metoprolol Tartrate 25 MG Tablet 12.5 MG PO ×2 (10:15→22:46)
[2019-01-25] MEDS: 0.9% Saline Lock 10 ML Syringe IV (10:54)
[2019-01-25] MEDS: Furosemide 40 MG/4 ML Vial IV (10:54)
--- NOTE | 2019-01-25 11:12 | CASEMGMT ---
NIKOLE called patient's daughter as she has not come to [facility] yet. NIKOLE left her a voice mail requesting she return NIKOLE's call. Patient does not need therapy at d/c. Tess HANSON
--- NOTE | 2019-01-25 13:15 | RAD_ITS ---
STUDY: X-RAY CHEST REASON FOR EXAM: Male, 78 years old. Chest pain TECHNIQUE: Frontal view of the chest COMPARISON: X-ray chest January 23, 2019 FINDINGS: Post CABG changes are present. Stable bibasilar infiltrates with small effusions are present. The heart is enlarged. Osseous structures are unremarkable. RAD/Chest Insp/Exp 2 View IMPRESSION: Stable bibasilar infiltrates with small bilateral effusions. Cardiomegaly. Electronically Signed: Reed Umana, at 19:33 EDT Tel , Service support ,
--- NOTE | 2019-01-25 13:38 | CASEMGMT ---
SW received a return phone call from patient's daughter, Tessy. SW explained to her that patient is not going to qualify for skilled care at a custodial as he is doing well with therapy. Therapy is actually indicating he will not need therapy at discharge. NIKOLE told her SW's idea of setting up home health and [facility]. NIKOLE told her a SW can assist in helping him apply for Medicaid if SW cannot get that done while he is here. SW will also make a referral to [facility] for a terminal computer operator care assessment. In the end it is hopeful he could get into assisted living on a waiver and he will still be in agreement with this plan. NIKOLE told her this would not be immediate, but at least something would be started. She was thankful that this would at least be a start. NIKOLE also told her SW spoke with patient about healthcare POA and he wants her to be his POA for healthcare. SW told her we can get these papers signed before he leaves. She was going to try and come in today to see patient and talk with the doctor. She was in agreement with [facility] and [facility]. SW will obviously need to talk with patient to make sure he is in agreement. NIKOLE called [facility] and made a referral for penitentiary, SW, and aide. NIKOLE also spoke with Giorgio with [facility] and they will also follow. Plan: Home with [facility] penitentiary, SW, and aide as well as [facility]. SW will also make a referral to [facility] for a terminal computer operator care assessment. NIKOLE does need to check with patient to make sure he is in agreement. Tess OREILLY MESS ATTENDANT CREW
--- NOTE | 2019-01-25 13:59 | CON.PCM_ITS ---
Problem List (1) Atrial fibrillation Status: Acute (2) LV dysfunction Status: Acute (3) Congestive heart failure Status: Acute Qualifiers: Heart failure type: systolic Reason for Consult Date of Consultation: 01/25/19 History of Present Illness: The patient is a 78-year-old male who was sent to the emergency department at [facility] on 01/23/2019 from his oncologist office for an irregular fast heart rate. His past medical history is significant for non- Hodgkin's lymphoma, paroxysmal atrial fibrillation and chronic anticoagulation with Xarelto. Vital signs at presentation to the emergency department were temperature 97.9, pulse rate 118, blood pressure 121/75, respiratory rate 22 and he was 98% saturated on room air. Admitting labs showed a white blood cell count of 5.3, hemoglobin of 12.1 and normal platelets. BMP was unremarkable. The BNP was elevated at 830. Chest x-ray showed a large right pleural effusion with possible underlying infiltration and/oral atelectasis. Questionable nodular density in the posterior medial aspect of the left lower lobe. PET scan in October 2018 was negative. He was admitted to the hospital with a diagnosis of acute on chronic heart failure with large right pleural effusion. He was admitted to a monitored bed on PCU and was placed on fluid restriction and IV Lasix and a 2D echocardiogram was ordered. Xarelto was placed on hold for possible diagnostic and therapeutic thoracentesis. Echocardiogram showed a mildly dilated left ventricle with an estimated ejection fraction of 30%. There is concentric left ventricular hypertrophy. There was evidence for diastolic dysfunction. There were no focal wall motion abnormalities and there was global hypokinesis of the left ventricle. The left atrium and right atrium were both mildly enlarged. No significant valvular heart disease. There is also mention of 5 vessel CABG in the ER physician note. Patient was apparently following with Dr. Donovan and now follows with his nurse practitioner. Patient does not want to cooperate with a good history. He denied any symptoms. He says that he was told in the past that he has a weak heart. Review of systems: Patient is not able to cooperate with good review of systems. Past Medical History Allergies/Adverse Reactions: Allergies No Known Allergies Allergy (Verified 01/23/19 12:27) Home Medications: Ambulatory Orders Medication Instructions Recorded Furosemide [Lasix] 40 mg PO DAILY 01/23/19 Metoprolol Tartrate [Lopressor 12.5 mg PO DAILY 01/23/19 (beta anitha)] Multivitamin with Minerals 1 tab PO DAILY 01/23/19 [Multiple Vitamin] [place]-3/Dha/Epa/Fish Oil [Fish Oil 1 ea PO DAILY 01/23/19 1,000 mg Softgel] Potassium Chloride 10 meq PO DAILY 01/23/19 Rivaroxaban [Xarelto] 20 mg PO DAILY 01/23/19 Simvastatin 10 mg PO DAILY 01/23/19 Psychiatric History: No pertinent psych hx - *Family History Maternal History Items: Cancer - mother had melanoma Lives: Alone Smoking Status: Former smoker Tobacco Use: Cigars Alcohol: None Drugs: None Objective: Vital Signs Temp Pulse Resp BP Pulse Ox 97.6 F L 67 18 108/54 L 96 01/25/19 09:25 01/25/19 13:25 01/25/19 13:25 01/25/19 13:25 01/25/19 09:25 Oxygen Delivery Method [3] Room Air Oxygen Delivery Method [2] Room Air Oxygen Delivery Method [1 ( Room Air Initial Baseline)] Oxygen Delivery Method Room Air Weight: 218 lb 14.704 oz Body Mass Index (BMI) 30.4 Intake and Output for Last 24 Hours 01/23/19 01/24/19 01/25/19 23:59 23:59 23:59 Intake Total 240 / 240 1760 / 1760 420 / 420 Output Total 250 / 250 200 / 200 3 / 3 Balance -10 1560 / 1560 417 / 417 General: Non-Cooperative HEENT: Atraumatic Neck: Supple Lungs: Clear to auscultation Cardiovascular: Irregular Rhythm Abdomen: Soft Extremities: Bilateral Edema +2 Skin: No Rashes 01/25/19 06:18: Sodium 142, Potassium 3.4 L, Chloride 105, Carbon Dioxide 30.0, Anion Gap 7, BUN 20 H, Creatinine 1.08, Est GFR (MDRD) Af Amer 85, Est GFR (MDRD) Non-Af 70, BUN/Creatinine Ratio 18.5, Glucose 102, Calcium 8.5, Total Bilirubin 1.10 H 01/25/19 06:18: PT 15.7 H, INR 1.3, APTT 34.3 Rhythm: EKG: ECHO: Stress Test: Cardiac Cath: PCI: CT Surgery: Holter monitor: EPS: PPM: CXR: Chest CT Scan: Assessment/Plan 1. Atrial fibrillation: Patient is already on Xarelto. His heart rate is better on current regimen. Continue metoprolol at this time. 2. LV dysfunction: This could be related to tachycardia induced cardiomyopathy as patient did not know he had a fast heart rate when he presented to his oncologist office. However while his history is somewhat unreliable he does seem to think that he was told in the past that he has weakness in his heart muscle. We should get records from his donations attendant office. However this may not change his current management at this time and this could also be done as an outpatient. For now I agree with continuing IV Lasix as patient appears to be still volume overloaded. No DERRICK inhibitors yet because of borderline blood pressure. We will consider starting this prior to discharge. As an outpatient, if patient has not had any work-up for his LV dysfunction then we can consider coronary angiography if he is a candidate at that time from an oncology standpoint. 3. CAD: ER note mentions history of CABG. Appears stable from the standpoint at this time.
[2019-01-25 14:19] LABS: Body Fluid Mononuclear WBC % 55.5 %; Body Fluid Polynuclear WBC # 0.008 10^3/uL; Body Fluid Polynuclear WBC % 44.5 %; Body Fluid Total Cells Counted 0.021 10^3/ul; White Blood Count/Body Fluid 0.018 10^3/uL
[2019-01-25 14:51] LABS: Appearance/Body Fluid SL CLDY; Color/Body Fluid YELLOW; Source- Body Fluid THORACENTESIS
[2019-01-25 14:53] LABS: Red Cell Count/Body Fluid 565 /mm3
--- NOTE | 2019-01-25 15:04 | CASEMGMT ---
SW spoke with patient regarding home health care and [facility]. He was in agreement with trying this plan. SW also completed Healthcare POA with patient. Copies were made and given to patient along with originals. A copy was also placed in his chart. Patient's mental status is questionable at times, however SW feels he was alert and oriented enough to complete Healthcare POA papers. Plan: d/c to home with [facility] jail, SW, and aide. Referral was made to [facility]. SW will make referral to [facility] for salvage determiner care assessment. Tess OREILLY PRODUCTION ADMINISTRATIVE ASSISTANT
[2019-01-25 15:40] LABS: Lymphocytes 28 %; Macrophages 40 %; Neutrophil (Segs) 32 %
[2019-01-25 15:41] LABS: Auto B Fluid Analyzer BKGD Ct COUNTS W/IN LIMITS (W/IN LIMITS)
[2019-01-25 15:43] LABS: Glucose, Body Fluid 131 mg/dL (40-70); LDH,Body Fluid 69 Units/l (Not Establ.)
--- NOTE | 2019-01-25 18:47 | US_ITS ---
PROCEDURE: ULTRASOUND GUIDED THORACENTESIS. DATE: January 25, 2019. INDICATION: Male, 78 years old. Right pleural effusion PHYSICIAN: Korey Nice M.D. PROCEDURE: The risks, benefits, and alternatives to the procedure were explained to the patient. The specific risks of bleeding, infection, and pneumothorax requiring chest tube insertion were discussed and accepted. Written informed consent was obtained. Ultrasonographic evaluation of the right lower pleural space was carried out. An adequate pocket was identified. The patient was placed in the sitting, upright position. The overlying skin was prepped and draped in sterile fashion. 1% lidocaine was administered subcutaneously for local anesthesia. Under ultrasound guidance, a 5 [place] thoracentesis needle/catheter system was advanced into the right posterior lower pleural fluid collection. Approximately 1170 mL of diane-colored fluid was drained. The catheter was removed, and a sterile dressing was applied. A specimen was collected and sent to the laboratory for analysis, as requested by the referring clinician. The patient tolerated the procedure well. A chest x-ray was ordered. US/Thoracentesis W US IMPRESSION: Ultrasound-guided right thoracentesis. Electronically Signed: Korey Nice, at 14:20 EDT , Service support ,
[2019-01-25] MEDS: Atorvastatin Calcium 10 MG Tablet 5 MG PO (22:46)
[2019-01-26 02:59] VITALS: PULSE 88
[2019-01-26 04:30] VITALS: BP 100/59; PULSE 81; RESP 18; TEMP 36.5; O2SAT 95
[2019-01-26 06:05] LABS: Anion Gap 4 (5-15); BUN 27 mg/dL (7-18); BUN/Creat Ratio 22.3 RATIO (10-20); Calcium,Total 8.6 mg/dL (8.5-10.1); Chloride 105 mmol/L (98-107); Creatinine, Serum 1.21 mg/dL (0.70-1.30); EST Glomerular Filtration Rate 62 mL/min (>60); Est Glom Filt Rate - Afr Amer 75 mL/min (>60); Estimated Creatinine Clearance 53.59 ml/min; Glucose 121 mg/dL (74-106); Sodium Level 141 mmol/L (136-145)
[2019-01-26 07:00] VITALS: PULSE 82
[2019-01-26 09:20] VITALS: BP 102/68; PULSE 71; RESP 18; TEMP 36.3; O2SAT 95
[2019-01-26] MEDS: Furosemide 40 MG/4 ML Vial IV (09:20)
[2019-01-26] MEDS: 0.9% Saline Lock 10 ML Syringe IV (09:20)
[2019-01-26 09:21] VITALS: PULSE 78
[2019-01-26] MEDS: Metoprolol Tartrate 25 MG Tablet 12.5 MG PO (09:21)
[2019-01-26] MEDS: Multivitamins,Ther W-Minerals Tablet 1 TABLET PO (09:21)
[2019-01-26] MEDS: Omega-3 Acid Ethyl Esters 1 GM Capsule PO (09:21)
--- NOTE | 2019-01-26 10:57 | PN.CARD_ITS ---
Subjectve: Pleasant gentleman in no distress Objective: Vital Signs Temp Pulse Resp BP Pulse Ox 97.4 F L 78 18 102/68 95 01/26/19 09:20 01/26/19 09:21 01/26/19 09:20 01/26/19 09:20 01/26/19 09:20 Oxygen Delivery Method [3] Room Air Oxygen Delivery Method [2] Room Air Oxygen Delivery Method [1 ( Room Air Initial Baseline)] Oxygen Delivery Method Room Air Weight: 215 lb 6.266 oz Body Mass Index (BMI) 30.4 Intake and Output for Last 24 Hours 01/24/19 01/25/19 01/26/19 23:59 23:59 23:59 Intake Total 1760 / 1760 960 / 960 240 / 240 Output Total 200 / 200 1173 / 1173 Balance 1560 / 1560 -213 / -213 240 / 240 General: Awake, Alert, Oriented x 3 HEENT: PERRL, EOMI, Sclera Non Icteric Neck: Supple, Good ROM, No Lymph Node Enlargement Lungs: Clear to auscultation Cardiovascular: Regular Rhythm, Normal S1, Normal S2, No Murmurs, No Rubs, No Gallops Vascular: No Carotid Bruits, Normal Femoral Pulses, Normal Radial Pulses, Normal Dorsalis Pedal Pulse, Normal Posterior Tibial Pulses Abdomen: Bowel Sounds Present, Soft, Non Tender, No HSM, No Organomegaly Extremities: No Cyanosis, No Clubbing, No edema Musculoskeletal: No Erythema Skin: No Rashes Lymphatic: No Lymph Node Enlargement Neurological: No Focal Motor or Sensory Deficit Psych/Mental Status: Appropriate 01/26/19 05:15: Sodium 141, Potassium 4.0, Chloride 105, Carbon Dioxide 32.0, Anion Gap 4 L, BUN 27 H, Creatinine 1.21, Est GFR (MDRD) Af Amer 75, Est GFR (MDRD) Non-Af 62, BUN/Creatinine Ratio 22.3 H, Glucose 121 H, Calcium 8.6 Rhythm: EKG: ECHO: Stress Test: Cardiac Cath: PCI: CT Surgery: Holter monitor: EPS: PPM: CXR: Chest CT Scan: Medical Necessity - Tobacco Use Smoking Status: Former smoker Tobacco Use: Cigars Assessment/Plan 1. Atrial fibrillation: Patient is already on Xarelto. His heart rate is mayank r on current regimen. Continue metoprolol at this time. 2. LV dysfunction: This could be related to tachycardia induced cardiomyopathy as patient did not know he had a fast heart rate when he presented to his oncologist office. However while his history is somewhat unreliable he does seem to think that he was told in the past that he has weakness in his heart muscle. We should get records from his insurance and financial services agent office. However this may not change his current management at this time and this could also be done as an outpatient. * Will recommend low-dose DERRICK inhibitor * Switch to p.o. Lasix 3. CAD: ER note mentions history of CABG. Appears stable from the standpoint at this time. Thank you for allowing me to participate in the care of your patient. Please don't hesitate to call if any issues arise
[2019-01-26 11:00] VITALS: PULSE 90
--- NOTE | 2019-01-26 11:48 | PCM.DC ---
- Discharge Diagnoses Current Active Problems: Current Active and Chronic Problems Atrial fibrillation (Acute) LV dysfunction (Acute) Congestive heart failure (Acute) You will use the following diet at home:: Cardiac Your food should be the consistency of: Regular Discharge Activity: May Not Drive Weight Bearing Status: Weight bearing as tolerated Call your doctor if you observe: Fever of 101 or Higher, Numbness or Tingling, Change in Color, Inability to have a bowel movement, Shortness of breath, Fainting spells, Swelling in the ankles, Chest pain, Increased palpitations (irregular heartbeat), Uncontrolled pain Instructions: Thoracentesis Allergies/Adverse Reactions: Allergies No Known Allergies Allergy (Verified 01/23/19 12:27) Medications to take at Discharge Metoprolol Tartrate [Lopressor (beta anitha)] 12.5 mg PO DAILY 01/23/19 Multivitamin with Minerals [Multiple Vitamin] 1 tab PO DAILY 01/23/19 [place]-3/Dha/Epa/Fish Oil [Fish Oil 1,000 mg Softgel] 1 ea PO DAILY 01/23/19 Rivaroxaban [Xarelto] 20 mg PO DAILY 01/23/19 Simvastatin 10 mg PO DAILY 01/23/19 Furosemide [Lasix] 40 mg PO BID #60 tab 01/26/19 Lisinopril [Zestril] 2.5 mg PO DAILY #30 tab 01/26/19 Potassium Chloride 20 meq PO DAILY #30 capsule.er 01/26/19 The following prescriptions were given: Furosemide [Lasix] 40 mg PO BID #60 tab Transmission Status: Pending to [facility] Potassium Chloride 20 meq PO DAILY #30 capsule.er Transmission Status: Pending to [facility] Lisinopril [Zestril] 2.5 mg PO DAILY #30 tab Transmission Status: Pending to [facility] Primary Care Physician: Maggie Jain NP-C [Primary Care Provider] - Please follow up with your Primary Care Physician in: IN 1-2 WEEK Test Results: Test results from this visit will be discussed in further detail at your follow-up appointment, if applicable. Please Follow Up With: Maggie Jain NP-C Please Follow Up With: Drake Marroquin MD When: in 4 week
--- NOTE | 2019-01-26 11:49 | DS.PCM_ITS ---
Discharge Date and Diagnosis - Problem List Patient Problems: Active and Suspected Problems Atrial fibrillation (Acute) LV dysfunction (Acute) Congestive heart failure (Acute) Date of Admission: 01/23/19 Date of Discharge: 01/26/19 - Primary Discharge Diagnosis Active and Suspected Problems Atrial fibrillation (Acute) LV dysfunction (Acute) Congestive heart failure (Acute) Hospital Course and Treatment Summary of Care Provided: The patient is a 78 year old M with history of non-Hodgkin's lymphoma being managed by Dr. Ureña was admitted from oncologist office on account of irregular fast heartbeat consistent with A. fib with RVR. Patient has history of chronic A. fib on Xarelto. Patient also has gradual worsening of shortness of breath for about 2 to 3 months. [] impressions 1. AF/flutter with RVR: Patient seen by car wash manager. Heart rate is controlled. Currently on metoprolol 12.5 mg twice daily. On Xarelto resumed after thoracocentesis 2. Acute on chronic systolic and diastolic heart failure: Nonischemic cardiomyopathy with a 30% ejection fraction and a mildly dilated left ventricle. There was severe global hypokinesis of the left ventricle. There was evidence of diastolic dysfunction and there was mild enlargement of the right and left atrium. This may be secondary to a tachycardia induced cardiomyopathy. Discharged on Lasix 40 mg twice daily with potassium supplement. Seen by car wash manager. 3. Large right pleural effusion with suspected left pleural effusion. Patient had thoracocentesis of 1170 fluid consistent with transudate. 4. Non-Hodgkin's lymphoma-treated by Dr. Ureña. He last had maintenance chemotherapy in October 2018. 5. Hypokalemia-K supplemented. Repeat K normal, 4.0 Discharge medication reconciliation done. Discharge follow-up instructions completed. Discharge process discussed with the patient and all questions were answered to patient's satisfaction. Prescription for Lasix, low-dose lisinop ril 2.5 mg daily and potassium supplement, sent to patient's pharmacy Total time spent, exact 35 minutes on discharge meds reconciliation, examination, review of imaging and blood test and discussion with the patient on follow-up instructions. Active Medications Albuterol Sulfate (Ventolin Aerosols) 2.5 mg INHALATION Q2H PRN PRN PRN Reason: Shortness of Breath/Wheezing Atorvastatin Calcium (Lipitor) 5 mg PO QHS [facility]EE[facility] Last Admin: 01/25/19 22:46 Dose: 5 mg Documented by: Dextrose (D50w Syringe) 0 gm IV X1 PRN; Protocol PRN Reason: Hypoglycemia Emollient Ointment (Eucerin Intensive Repair) 1 applic TOPICAL BID [facility]; Protocol Last Admin: 01/26/19 09:21 Dose: 1 applicatio Documented by: Furosemide (Lasix) 40 mg PO BID@1000,1800 [facility] Glucagon () 1 mg IM .X1 PRN PRN Reason: Hypoglycemia Sodium Chloride () 1,000 mls @ 15 mls/hr IV .Q48H [facility] Last Admin: 01/25/19 14:52 Dose: Not Given Documented by: Lisinopril (Zestril) 2.5 mg PO DAILY [facility] Magnesium Hydroxide (Milk Of Magnesia) 30 ml PO DAILY PRN PRN PRN Reason: Constipation Metoprolol Tartrate (Lopressor (Beta David)) 12.5 mg PO BID [facility] Last Admin: 01/26/19 09:21 Dose: 12.5 mg Documented by: Multivitamins/Minerals (Multivitamin With Minerals) 1 tablet PO DAILY@0800 [facility] Last Admin: 01/26/19 09:21 Dose: 1 tablet Documented by: Nitroglycerin (Nitrostat) 0.4 mg SUBLINGUAL Q5M PRN PRN Reason: CARDIAC/CHEST PAIN Nutritional Formula (Lactose Free) (Ensure Enlive) 120 ml PO 4X/DAY [facility] Last Admin: 01/26/19 09:21 Dose: 120 ml Documented by: [id number] Ethyl Esters (Lovaza) 1 gm PO DAILY [facility] Last Admin: 01/26/19 09:21 Dose: 1 gm Documented by: Rivaroxaban (Xarelto) 20 mg PO DAILY@1700 [facility] Sodium Chloride () 10 - 40 ml IV UD PRN PRN Reason: SALINE FLUSH Last Admin: 01/26/19 09:20 Dose: 10 ml Documented by: Laboratory Results 01/25/19 13:30: Fluid Glucose 131 H, Fluid Total Protein 3.0, Fluid LDH 69 01/25/19 13:30: Fluid Source THORACENTESIS, Fluid Color YELLOW, Fluid Appearance SL CLDY, Fluid WBC 0.018, Fluid RBC 565, Fluid Tot Cell Count 0.021, Fld Polynuclear WBCs # 0.008, Fld Polynuclear WBCs % 44.5, Fluid Mononuclear WBCs 0.010, Fld Mononuclear WBCs % 55.5, Fluid Neutrophils 32, Fluid Lymphocytes 28, Fluid Macrophages 40, Fl Pathologist Comment May follow, Fluid Comment 2 SEE COMMENT 01/26/19 05:15: Sodium 141, Potassium 4.0, Chloride 105, Carbon Dioxide 32.0, Anion Gap 4 L, BUN 27 H, Creatinine 1.21, Estim Creat Clear Calc 53.59, Est GFR (MDRD) Af Amer 75, Est GFR (MDRD) Non-Af 62, BUN/Creatinine Ratio 22.3 H, Glucose 121 H, Calcium 8.6 Clinical Impression(s) from Imaging Studies Chest X-Ray 01/23/19 13:45 IMPRESSION: Right pleural effusion with underlying infiltration and/or atelectasis. Questionable 4.8 cm x 4.7 cm nodular density in the posteromedial aspect of the left lower lobe. Electronically Signed: Korey Nice, at 14:11 EDT , Service support , Chest CT 01/24/19 19:01 IMPRESSION: Limited evaluation due to motion. Moderate to large right-sided pleural effusion. Right perihilar consolidation. Trace left effusion. Mild cardiomegaly. Coronary artery calcifications. 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 Abdominal ascites. Electronically Signed: Reed Umana, at 20:05 EDT Tel , Service support , Chest X-Ray 01/25/19 13:15 IMPRESSION: Stable bibasilar infiltrates with small bilateral effusions. Cardiomegaly. Electronically Signed: Reed Umana, at 19:33 EDT Tel , Service support , Thoracentesis Ultrasound 01/25/19 18:47 IMPRESSION: Ultrasound-guided right thoracentesis. Electronically Signed: Korey Nice, at 14:20 EDT , Service support , Patient Problems: Active and Suspected Problems Atrial fibrillation (Acute) LV dysfunction (Acute) Congestive heart failure (Acute) Subjective: Patient had thoracocentesis, 117 0 mL removed from right pleural effusion. Fluid was diane-colored. Overall pleural fluid analysis suggestive of transudate. - Physical Exam Vitals/I&O's: Vital Signs Temp Pulse Resp BP Pulse Ox 97.4 F L 90 18 102/68 95 01/26/19 09:20 01/26/19 11:00 01/26/19 09:20 01/26/19 09:20 01/26/19 09:20 Oxygen Delivery Method [3] Room Air Oxygen Delivery Method [2] Room Air Oxygen Delivery Method [1 ( Room Air Initial Baseline)] Oxygen Delivery Method Room Air Weight: 215 lb 6.266 oz Body Mass Index (BMI) 30.4 Intake and Output for Last 24 Hours 01/24/19 01/25/19 01/26/19 23:59 23:59 23:59 Intake Total 1760 / 1760 960 / 960 240 / 240 Output Total 200 / 200 1173 / 1173 Balance 1560 / 1560 -213 / -213 240 / 240 General: Alert, Oriented x3, Cooperative HEENT: Atraumatic, PERRLA, EOMI, Normocephalic Neck: Supple, No JVD, Negative Carotid Bruits Lungs: No rhonchi, No wheeze, No rales, Diminished - Air entry diminished on right posterior basal but has improved. Cardiovascular: Regular rate, Normal S1, Normal S2, No murmurs, Irregular Rate, - - Frequent PVCs and A. fib on telemetry. Abdomen: Bowel Sounds Present, Soft, Non Tender, Non-Distended Extremities: Capillary Refill Less than 3 Seconds, Edema - Mild pedal edema Skin: No rashes, No breakdown Musculoskeletal: No Tenderness to Palpation of Joints or Extremities, Arthritic Changes Neurological: Cranial nerves II-XII grossly intact, Deep Tendon Reflexes 2+/4 and Symmetrical, Neuro grossly intact Psych/Mental Status: Normal Affect, Appropriate Laboratory Results 01/25/19 13:30: Fluid Glucose 131 H, Fluid Total Protein 3.0, Fluid LDH 69 01/25/19 13:30: Fluid Source THORACENTESIS, Fluid Color YELLOW, Fluid Appearance SL CLDY, Fluid WBC 0.018, Fluid RBC 565, Fluid Tot Cell Count 0.021, Fld Polynuclear WBCs # 0.008, Fld Polynuclear WBCs % 44.5, Fluid Mononuclear WBCs 0.010, Fld Mononuclear WBCs % 55.5, Fluid Neutrophils 32, Fluid Lymphocytes 28, Fluid Macrophages 40, Fl Pathologist Comment May follow, Fluid Comment 2 SEE COMMENT 01/26/19 05:15: Sodium 141, Potassium 4.0, Chloride 105, Carbon Dioxide 32.0, Anion Gap 4 L, BUN 27 H, Creatinine 1.21, Estim Creat Clear Calc 53.59, Est GFR (MDRD) Af Amer 75, Est GFR (MDRD) Non-Af 62, BUN/Creatinine Ratio 22.3 H, Glucose 121 H, Calcium 8.6 Current Medications Albuterol Sulfate (Ventolin Aerosols) 2.5 mg INHALATION Q2H PRN PRN PRN Reason: Shortness of Breath/Wheezing Atorvastatin Calcium (Lipitor) 5 mg PO QHS [facility] Last Admin: 01/25/19 22:46 Dose: 5 mg Documented by: Dextrose (D50w Syringe) 0 gm IV X1 PRN; Protocol PRN Reason: Hypoglycemia Emollient Ointment (Eucerin Intensive Repair) 1 applic TOPICAL BID [facility]; Protocol Last Admin: 01/26/19 09:21 Dose: 1 applicatio Documented by: Furosemide (Lasix) 40 mg PO BID@1000,1800 [facility] Glucagon () 1 mg IM .X1 PRN PRN Reason: Hypoglycemia Sodium Chloride () 1,000 mls @ 15 mls/hr IV .Q48H [facility] Last Admin: 01/25/19 14:52 Dose: Not Given Documented by: Lisinopril (Zestril) 2.5 mg PO DAILY [facility] Magnesium Hydroxide (Milk Of Magnesia) 30 ml PO DAILY PRN PRN PRN Reason: Constipation Metoprolol Tartrate (Lopressor (Beta David)) 12.5 mg PO BID [facility] Last Admin: 01/26/19 09:21 Dose: 12.5 mg Documented by: Multivitamins/Minerals (Multivitamin With Minerals) 1 tablet PO DAILY@0800 [facility] Last Admin: 01/26/19 09:21 Dose: 1 tablet Documented by: Nitroglycerin (Nitrostat) 0.4 mg SUBLINGUAL Q5M PRN PRN Reason: CARDIAC/CHEST PAIN Nutritional Formula (Lactose Free) (Ensure Enlive) 120 ml PO 4X/DAY [facility] Last Admin: 01/26/19 09:21 Dose: 120 ml Documented by: [id number] Ethyl Esters (Lovaza) 1 gm PO DAILY [facility] Last Admin: 01/26/19 09:21 Dose: 1 gm Documented by: Rivaroxaban (Xarelto) 20 mg PO DAILY@1700 [facility] Sodium Chloride () 10 - 40 ml IV UD PRN PRN Reason: SALINE FLUSH Last Admin: 01/26/19 09:20 Dose: 10 ml Documented by: Discharge Activity: May Not Drive Weight Bearing Status: Weight bearing as tolerated Call your doctor if you observe: Fever of 101 or Higher, Numbness or Tingling, Change in Color, Inability to have a bowel movement, Shortness of breath, Fainting spells, Swelling in the ankles, Chest pain, Increased palpitations (irregular heartbeat), Uncontrolled pain Home Medications: Medications to take at Discharge Metoprolol Tartrate [Lopressor (beta david)] 12.5 mg PO DAILY 01/23/19 Multivitamin with Minerals [Multiple Vitamin] 1 tab PO DAILY 01/23/19 [place]-3/Dha/Epa/Fish Oil [Fish Oil 1,000 mg Softgel] 1 ea PO DAILY 01/23/19 Rivaroxaban [Xarelto] 20 mg PO DAILY 01/23/19 Simvastatin 10 mg PO DAILY 01/23/19 Furosemide [Lasix] 40 mg PO BID #60 tab 01/26/19 Lisinopril [Zestril] 2.5 mg PO DAILY #30 tab 01/26/19 Potassium Chloride 20 meq PO DAILY #30 capsule.er 01/26/19 Following Prescrptions Were Given to Patient: Furosemide [Lasix] 40 mg PO BID #60 tab Transmission Status: Received by [facility] Potassium Chloride 20 meq PO DAILY #30 capsule.er Transmission Status: Received by [facility] Lisinopril [Zestril] 2.5 mg PO DAILY #30 tab Transmission Status: Received by [facility] Primary Care Physician: Maggie Jain, CRISTOBAL-C [Primary Care Provider] - Please follow up with your Primary Care Physician in: IN 1-2 WEEK Please Follow Up With: Maggie Jain NP-C Please Follow Up With: Drake Marroquin MD When: in 4 week Patient Instructions: Thoracentesis Medical Necessity - Tobacco Use Smoking Status: Former smoker Tobacco Use: Cigars Meaningful Use Info Meaningful Use Diagnoses (Choose all that apply): None applicable Code Visit Inpatient E&M: 05189 Disch Hosp
[2019-01-28 11:40] LABS: Pathologist Comment/Body Fluid Reviewed
--- NOTE | 2019-01-28 14:04 | CASEMGMT ---
Case Management DC F/u call: DC Date: 01/26/19 DC Diagnosis: Atrial fibrillation (Acute), LV dysfunction (Acute), Congestive heart failure (Acute) DC Disposition: Home with [facility]-, SW, Aide. CCN referral. Lace/Strata: 14/07 Called patient cell phone listed on demographics, no answer, voice message did confirm correct patient number, Voice mailbox full and unable to leave . Dex Newman RNCM
--- NOTE | 2019-02-12 08:55 | CCN.REFER ---
Patient declines CCN. CCN put on hold until HHS was completed. T/C to Holly to check status, and Holly in [facility] states patient never agreed to [facility] either on 01/25. T/C to KASS[facility] Still who states patient does not want any added monitoring in home.
== END 2019-01-26 13:27 | disposition home or self-care (01) | DRG 308 ==
LOC: ED 13:50 → PCU 15:18
PROVIDERS: Internal Medicine; Admitting Provider Student in an Organized Health Care Education/Training Program; Emergency Provider Emergency Medicine; Family Provider Nurse Practitioner Family; PCP Nurse Practitioner Family; Referring Provider Student in an Organized Health Care Education/Training Program; Visit Provider Internal Medicine
DX: I48.91 Unspecified atrial fibrillation (principal); I50.43 Acute on chronic combined systolic (congestive) and diastolic (congestive) heart failure; C85.90 Non-Hodgkin lymphoma, unspecified, unspecified site; J91.8 Pleural effusion in other conditions classified elsewhere; I48.92 Unspecified atrial flutter; I42.8 Other cardiomyopathies; Z79.899 Other long term (current) drug therapy; Z79.02 Long term (current) use of antithrombotics/antiplatelets; Z95.1 Presence of aortocoronary bypass graft; I25.10 Atherosclerotic heart disease of native coronary artery without angina pectoris; Z87.891 Personal history of nicotine dependence; E87.6 Hypokalemia
CPT/HCPCS: 32555; 36415; 71045; 71046; 71250; 80048; 80053; 80076; 82945; 83615; 83735; 83880; 84157; 84484; 85025; 85610; 85730; 88108; 88305; 88313; 89050; 93005; 93306; 94640; 97116; 97162; 97165; 97530; 97802; 99285; Q9957; A4216; C8929; J1940

== ENCOUNTER 2019-02-26 10:00 | Outpatient (RCR) | payer MEDICARE, SELFPAY ==
[2019-02-11 13:09] VITALS: BMI 29.8
[2019-02-14 11:01] VITALS: BP 116/72; PULSE 118; RESP 18; TEMP 37.2; BMI 28.4
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
--- NOTE | 2019-02-14 12:10 | PCM.WC.HP ---
(1) Chronic ulcer of left foot with fat layer exposed Status: Chronic Current Visit: Yes Code(s): L97.522 - Non-pressure chronic ulcer of other part of left foot with fat layer exposed (2) Ulcer of left lower extremity with fat layer exposed Status: Acute Current Visit: Yes Code(s): L97.922 - Non-pressure chronic ulcer of unspecified part of left lower leg with fat layer exposed (3) Ulcer of right lower extremity with fat layer exposed Status: Acute Current Visit: Yes Code(s): L97.912 - Non-pressure chronic ulcer of unspecified part of right lower leg with fat layer exposed (4) Type 2 diabetes mellitus with diabetic polyneuropathy Status: Acute Current Visit: Yes Code(s): E11.42 - Type 2 diabetes mellitus with diabetic polyneuropathy (5) PVD (peripheral vascular disease) Status: Acute Current Visit: Yes Code(s): I73.9 - Peripheral vascular disease, unspecified (6) Venous insufficiency Status: Acute Current Visit: Yes Code(s): I87.2 - Venous insufficiency (chronic) (peripheral) History of Present Illness Date of Service: 02/14/19 Chief Complaint: Ulcers to bilateral lower extremities History of Wound: This 78-year-old diabetic male was referred to the wound healing center by his primary care physician for ulcers to bilateral lower extremities. The patient presents with his daughter today. The patient is a poor historian and is unsure how long the ulcer sites have been open, but feels that it may be about 2 months. Patient currently lives at home by himself. Patient's daughter feels he is unfit to do so citing issues with the patient being able to care for himself as well as the cleanliness of the patient's home. Patient has most recently been treating his ulcer sites with Silvadene cream. He currently denies any signs of infection. Patient currently denies any feelings of nausea, vomiting, fever, chills. Past Medical History Past Medical History: Chronic Problems (Last Reviewed 02/11/19 @ 16:13 by Prem Darden MD) Chronic ulcer of left foot with fat layer exposed (Chronic) Chronic atrial fibrillation (Chronic) Ischemic cardiomyopathy (Chronic) Hyperlipidemia (Chronic) Atherosclerosis of coronary artery of [place] without angina pectoris (Chronic) ALEJANDRE to LAD, LESLI to marginal branch of Cx, SVG to diagonal, SVG to distal Cx, SVG to PDA 03/24/03 History of coronary artery bypass graft (Chronic) ALEJANDRE to LAD, LESLI to marginal branch of Cx, SVG to diagonal, SVG to distal Cx, SVG to PDA 03/24/03 Allergies/Adverse Reactions: Allergies No Known Allergies Allergy (Verified 02/11/19 13:14) Home Medications: Ambulatory Orders Medication Instructions Recorded Multivitamin with Minerals 1 tab PO DAILY 01/23/19 [Multiple Vitamin] [place]-3/Dha/Epa/Fish Oil [Fish Oil 1 ea PO DAILY 01/23/19 1,000 mg Softgel] Furosemide [Lasix] 40 mg PO BID #60 tab 01/26/19 Potassium Chloride 20 meq PO DAILY #30 capsule.er 01/26/19 candesartan 4 mg tablet 4 mg PO DAILY #30 tab 02/11/19 metformin ER 500 mg 500 mg PO DAILY tab 02/11/19 tablet,extended release 24 hr simvastatin 10 mg tablet 10 mg PO QHS #30 tab 02/11/19 Rivaroxaban [Xarelto] 20 mg PO DAILY 02/14/19 - Family History Maternal Family History: Family History (Last Reviewed 02/11/19 @ 16:13 by Prem Darden MD) Mother Cancer Father Emphysema of lung Cancer - mother had melanoma Smoking Status: Never smoker Review of Systems Constitutional: Denies: Chills, Fever, Weight Change Cardiovascular: Denies: Chest Pain Respiratory: Denies: Cough, Shortness of Breath Gastrointestinal: Denies: Nausea, Vomiting Skin: Reports: - - Bilateral lower extremity ulcers Neurological: Reports: - - Diabetic neuropathy to lower extremities - Physical Exam Vital Signs Temp Pulse Resp BP 98.9 F 118 H 18 116/72 02/14/19 11:01 02/14/19 11:01 02/14/19 11:01 02/14/19 11:01 General: Alert, Oriented x3, Cooperative, No apparent distress Extremities: No cyanosis, Capillary Refill Less than 3 Seconds - To all distal digits of each foot, No Calf Tenderness - Negative Gvoind and Kramer signs bilateral, Diminished Peripheral Pulses, Edema - Bilateral lower extremity edema Skin: Ulcer/ Wound - Ulcers with fat layer exposed noted to left posterior calf right anterior pollard and plantar left hallux. The bases of each ulcer site are a mixture of adherent slough, fibrin, biofilm, as well is granular tissue. There is no probing to bone, no tracking, no undermining, no purulence, no surrounding or extending cellulitis, no increase in warmth, no malodor, and no other signs of acute local bacterial infection noted. Wound Measurements and Assessment WC - Nurse 1 - General Ulcer Measurement Start: 02/14/19 11:00 Freq: Status: Active Protocol: Activity Type Activity Date Activity User E-Sign Co-Sign Detail Recorded Client Recorded Date Recorded By Document 02/14/19 11:01 RB [id number] 02/14/19 11:14 RB 02/14/19 11:01 Wound Center Nurse 1 [Ulcer Assessment] #3 L Hallux plantar -Combined with other wound No -Current Size (cm) - Length 2.2 -Current Size (cm) - Width 1.2 -Current Size (cm) - Depth 0.1 -Total Square Cm 2.64 -Tunneling No -Undermining/Tunneling No -Circular Undermining No -Exudate Amt Small -Exudate Type Serosanguineous -Wound Margin Flat & Intact -Granulation Amt Medium (34-66%) -Granulation Quality [place] -Slough/Fibrin Yes -Necrosis Amt Small (1-33%) -Necrotic Tissue Type Adherent Slough -Structure Exposed N/A -Texture (Perlita-wound Skin Appearance) Assessed -Moisture (Perlita-wound Skin Appearance Assessed ) -Color (Perlita-wound Skin Appearance) Assessed -Temperature (Perlita-wound Skin No Abnormality Appearance) (Pt Warm) -Tenderness on Palpation (Perlita-wound No Skin Appearance) -Ulcer Cleansing Wound Cleanser -Foul Odor after Cleansing No -Anesthetic Used 4% Lidocaine Solution #2 LLE posterior -Combined with other wound No -Current Size (cm) - Length 8.3 -Current Size (cm) - Width 3 -Current Size (cm) - Depth 0.1 -Total Square Cm 24.9 -Photo Taken Yes -Tunneling No -Undermining/Tunneling No -Circular Undermining No -Exudate Amt Small -Exudate Type Serosanguineous -Wound Margin Flat & Intact -Granulation Amt Medium (34-66%) -Granulation Quality [place] -Slough/Fibrin Yes -Necrosis Amt Small (1-33%) -Necrotic Tissue Type Adherent Slough -Structure Exposed N/A -Texture (Perlita-wound Skin Appearance) Assessed, Friable -Moisture (Perlita-wound Skin Appearance Assessed ) -Color (Perlita-wound Skin Appearance) Assessed -Temperature (Perlita-wound Skin No Abnormality Appearance) (Pt Warm) -Tenderness on Palpation (Perlita-wound No Skin Appearance) -Ulcer Cleansing Wound Cleanser -Foul Odor after Cleansing No -Anesthetic Used 4% Lidocaine Solution #1 R pollard cluster -Combined with other wound No -Current Size (cm) - Length 9 -Current Size (cm) - Width 2 -Current Size (cm) - Depth 0.1 -Total Square Cm 18 -Photo Taken Yes -Tunneling No -Undermining/Tunneling No -Circular Undermining No -Exudate Amt Small -Exudate Type Serosanguineous -Wound Margin Flat & Intact -Granulation Amt Large (67-100%) -Granulation Quality [place] -Slough/Fibrin Yes -Necrosis Amt Small (1-33%) -Necrotic Tissue Type Adherent Slough -Structure Exposed N/A -Texture (Perlita-wound Skin Appearance) Assessed, Friable -Moisture (Perlita-wound Skin Appearance Assessed ) -Color (Perlita-wound Skin Appearance) Assessed -Temperature (Perlita-wound Skin No Abnormality Appearance) (Pt Warm) -Tenderness on Palpation (Perlita-wound No Skin Appearance) -Ulcer Cleansing Wound Cleanser -Foul Odor after Cleansing No -Anesthetic Used 4% Lidocaine Solution [Edema Assessment] -Lower Limb Edema Present Yes -Right Calf (cm) 40 -Right Ankle (cm) 24 -Left Calf (cm) 41 -Left Ankle (cm) 24 Musculoskeletal: Tenderness - With manipulation of left posterior leg and right anterior pollard ulcer sites. No tenderness noted with manipulation of left plantar hallux ulcer site. Neurological: - - Lack of normal epicritic sensation to bilateral feet Psych/Mental Status: Appropriate Debridement Note Wound debrided: left plantar hallux Laterality: Left Type of Debridement: Selective debridement Anesthesia Used: 5% Lidocaine Gel Depth: in the subcutaneous layer Percentage of wound debrided: 100 Instrument Used: 3mm curette Tissue Removed: Adherent slough, fibrin, biofilm Severity: Fat Layer Exposed Amount of bleeding with debridement: Mild Bleeding Controlled with: Pressure Patient tolerated procedure well - Additional Wound Wound debrided: Left posterior leg Laterality: Left Type of Debridement: Selective debridement Anesthesia Used: 5% Lidocaine Gel Depth: in the subcutaneous layer Percentage of wound debrided: 100 Instrument Used: 3mm curette Tissue Removed: Adherent slough, fibrin, biofilm Severity: Fat Layer Exposed Amount of bleeding with debridement: Mild Bleeding Controlled with: Pressure Patient tolerated procedure: Patient tolerated procedure well - Additional Wound Wound debrided: Right anterior pollard Laterality: Right Type of Debridement: Selective debridement Anesthesia Used: 5% Lidocaine Gel Depth: in the subcutaneous layer Percentage of wound debrided: 100 Instrument Used: 3mm curette Tissue Removed: Adherent slough, fibrin, biofilm Severity: Fat Layer Exposed Amount of bleeding with debridement: Mild Bleeding Controlled with: Pressure Patient tolerated procedure: Patient tolerated procedure well Assessment/Plan Active Problems (Last Reviewed 02/11/19 @ 16:13 by Prem Darden MD) Chronic ulcer of left foot with fat layer exposed (Chronic) Ulcer of left lower extremity with fat layer exposed (Acute) Ulcer of right lower extremity with fat layer exposed (Acute) Type 2 diabetes mellitus with diabetic polyneuropathy (Acute) PVD (peripheral vascular disease) (Acute) Venous insufficiency (Acute) Assessment: As noted above Plan: Initial patient examination and evaluation was performed. A mild selective debridement was performed as noted in the clinical panel. Once complete the ulcer sites were then all dressed with Aquacel Ag to the base followed by dry sterile dressing and a Tubigrip for light compression. The patient is to have the dressing change in this manner on a daily basis. Patient's daughter states that for now she will be able to help him daily with this. The importance of keeping each of the ulcer sites offloaded was stressed in great detail. If he has to be up moving around for a short distance she is to keep pressure to the left heel and away from the left forefoot where the left plantar hallux ulcer is. He is to float the other ulcer sites and keep pressure completely off of them by using pillows. Patient was instructed to never sit with his legs in the dependent position and keep them up and elevated while seated or laying down. No antibiotics were prescribed today as there are no clinical signs of local bacterial infection. LEAS and venous Doppler exams were ordered for this patient. We will continue to monitor for the results of these tests. I also recommend nutritional supplementation with a high-protein diet in order to help optimize ulcer healing potential. After speaking with the patient, as well as his daughter, I feel it would be in the patient's best interest to be at a intermediate facility where he can be provided with [id number] care and monitoring. 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 The patient's daughter also raises concerns about the patient's decreasing ability to care for himself as well as the cleanliness of his house. She also relates that there her been times when she is gone into his home and he has defecated on the bathroom floor and not cleaned it up. Patient relates that he would be willing to go to a facility. They will discuss this further with the patient's primary care physician who the daughter says would set everything up. The patient was educated on all signs and symptoms of local and systemic infection, and the patient was instructed to go to the emergency room immediately should he notice any of these. All other questions were answered to the patient and his daughter satisfaction. This patient was originally to be seen by another provider at the wound healing center, and the patient had a scheduling conflict at the last minute with his original date and needed to be put onto my schedule last minute. The patient will be following up in the future with the original provider that he was scheduled with. The patient is to follow back up in clinic in 1 week, or sooner if needed before then.
--- NOTE | 2019-02-26 09:47 | VDLE_ITS ---
Reason For Study: Edema RIGHT LEFT CFV is compressible, spontaneous, competent CFV is compressible, spontaneous, competent, and demonstrates pulsatile venous flow. and demonstrates pulsatile venous flow. FV is compressible, spontaneous, competent FV is compressible, spontaneous, competent and demonstrates pulsatile venous flow. and demonstrates pulsatile venous flow. POP V is compressible, spontaneous, competent POP V is compressible, spontaneous, competent and demonstrates pulsatile venous flow. and demonstrates pulsatile venous flow. T/P Trunk is compressible. T/P Trunk is compressible. PTV is compressible. PTV is compressible. RT PerV is compressible. LT PerV is compressible. SFJ is competent and measures 0.82 x 0.87 cm. All veins checked had pulsitle venous flow SSV at junction is competent and measures noted. 0.33 x 0.33 cm. SFJ is competent and measures 0.71 x 0.79 cm. GSV was previously harvested. GSV proximal thigh measures 0.50 x 0.53 cm. GSV at knee measures 0.64 x 0.64 cm. All veins checked had pulsitle venous flow GSV is competent throughout. noted. SSV at junction is competent and measures Procedure 0.36 x 0.38 cm. Exam performed in department. A preliminary report was called and/or faxed to . Interpretation Summary Deep veins of the lower extremities are bilaterally patent and compressible segmentally. There is no evidence of deep vein thrombosis on either side. Valvular competence appears intact within the proximal deep venous systems bilaterally. Sapheno-femoral junctions are bilaterally competent . The right great saphenous vein is absent, having been previously harvested. The left great saphenous vein appears segmentally competent. Small saphenous veins are patent and competent bilaterally. Pulsatile flow is noted in the deep venous system bilaterally, which may be indicative of elevated central venous pressure (i.e. congestive heart failure, tricuspid valve insufficiency, etc.). Clinical correlation is advised. Ordering Physician: Miguel A Castellanos Referring Physician: Maggie Jain Performed By: Ailyn Viera RVT
--- NOTE | 2019-02-26 09:48 | ART_ITS ---
Reason For Study: PVD Procedure A bilateral lower extremity continuous wave Doppler with analog waveform analysis,segmental pressures,and ankle brachial indexes without exercise. Left Segmental Pressures Left brachial= 119mmHg. Left posterior tibial artery = 172mmHg. Left dorsalis pedis artery = 164mmHg. Left digit = 119 mmHg. The left dorsalis pedis waveforms are triphasic. The left posterior tibial artery waveforms are triphasic. Right Segmental Pressures Right brachial= 105mmHg. Right posterior tibial artery = 162mmHg. Right dorsalis pedis artery = 150mmHg. Right digit = 95 mmHg. The right dorsalis pedis waveforms are triphasic. The right posterior tibial artery waveforms are triphasic. Indices The right ankle brachial index by the dorsalis pedis is 1.26. The right ankle brachial index by the posterior tibial artery is 1.36. The right digital-brachial index is 0.80. The left ankle brachial index by the dorsalis pedis is 1.38. The left ankle brachial index by the posterior tibial artery is 1.45. The left digital-brachial index is 1.00. Interpretation Summary Triphasic Doppler waveforms are noted at ankle level bilaterally. Pulse-volume recording waveform amplitudes appear diminished at digital level on the right. The resting right ankle-brachial index is normal. The resting left ankle-brachial index is supra-normal. Digital-brachial indices are normal bilaterally. Arterial flow appears normal in the lower extremities bilaterally. There is evidence of arterial calcification at ankle level on the left. Ordering Physician: Miguel A Castellanos Referring Physician: Maggie Jain Performed By: Ailyn Viera RVT
== END 2019-03-02 23:59 ==
LOC: CVS 10:00
PROVIDERS: Family Provider Nurse Practitioner Family; PCP Nurse Practitioner Family; Referring Provider Podiatrist; Visit Provider Podiatrist
DX: E11.621 Type 2 diabetes mellitus with foot ulcer (principal); R60.0 Localized edema; E11.51 Type 2 diabetes mellitus with diabetic peripheral angiopathy without gangrene; E11.42 Type 2 diabetes mellitus with diabetic polyneuropathy; E78.5 Hyperlipidemia, unspecified; I25.10 Atherosclerotic heart disease of native coronary artery without angina pectoris; Z95.1 Presence of aortocoronary bypass graft; I25.5 Ischemic cardiomyopathy; I48.20 Chronic atrial fibrillation, unspecified; E11.622 Type 2 diabetes mellitus with other skin ulcer; L97.522 Non-pressure chronic ulcer of other part of left foot with fat layer exposed; L97.822 Non-pressure chronic ulcer of other part of left lower leg with fat layer exposed; L97.812 Non-pressure chronic ulcer of other part of right lower leg with fat layer exposed; G30.9 Alzheimer's disease, unspecified; F02.80 Dementia in other diseases classified elsewhere, unspecified severity, without behavioral disturbance, psychotic disturbance, mood disturbance, and anxiety
CPT/HCPCS: 93923; 93970; 99213; G0463

== ENCOUNTER → 2019-08-15 12:58 | Outpatient (CLI) | payer MEDICARE, SELFPAY ==
[2019-02-25 15:43] VITALS: BMI 30.4
[2019-04-30 11:40] VITALS: BMI 30.1
--- NOTE | 2019-08-15 12:59 | ECHOCS_ITS ---
Reason For Study: CHF Procedure This was a 2D Doppler, Color Flow transthoracic echocardiogram. The study was technically difficult. Contrast injection was performed. Exam performed in department. Left Ventricle Mildly dilated left ventricle. The estimated ejection fraction is 40 %. There is evidence of diastolic dysfunction. There is moderate global hypokinesis of the left ventricle. Right Ventricle Normal RV size. Normal systolic function. Atria The left atrium is mildly enlarged. The right atrium is mildly enlarged. No doppler evidence for ASD. Mitral Valve There is mild mitral annular calcification. There is no mitral valve stenosis. Mild (1+) mitral valve insufficiency. Tricuspid Valve There is no tricuspid stenosis. Mild tricuspid valve insufficiency. Pulmonary artery systolic pressure is 30-35 mmHg. Aortic Valve Trisinus/trileaflet aortic valve. There is no aortic stenosis. Mild (1+) eccentric aortic valve insufficiency. Pulmonic Valve There is no pulmonic valvular stenosis. Trivial pulmonic valve insufficiency. Great Vessels Normal aortic root. Pericardium/Pleural No pericardial effusion. Medication 22 gauge I.V. with prn adaptor inserted into right arm. Diluted definity 4.0ml given slow IV push to enhance endocardial definition. MMode/2D Measurements & Calculations LVIDd: 5.4 cm IVSd: 1.1 cm Ao root diam: 4.7 cm LVIDs: 4.3 cm LVPWd: 1.1 cm RVDd: 4.5 cm FS: 20.7 % LAV(MOD-bp): 57.1 ml LVAd ap4: 36.2 cm2 SV(MOD-sp4): 57.7 ml LAV(MOD-bp) Indexed: 26.4 ml/m2 EDV(MOD-sp4): 126.4 ml LAV(MOD-sp2): 65.3 ml EDV(sp4-el): 131.5 ml LAV(MOD-sp4): 49.2 ml LVAs ap4: 25.2 cm2 ESV(MOD-sp4): 68.6 ml ESV(sp4-el): 71.3 ml EF(MOD-sp4): 45.7 % EF(sp4-el): 45.8 % SV(sp4-el): 60.3 ml LA A4 area: 18.3 cm2 LA dimension(2D): 5.1 cm RA A4 area: 19.3 cm2 Time Measurements MV dec time: 0.18 sec Doppler Measurements & Calculations MV E max william: 116.6 cm/sec Lat Peak E' William: 9.8 cm/sec Med Peak E' William: 6.3 cm/sec MV A max william: 73.4 cm/sec E/E' lat: 11.9 E/E' med: 18.4 MV E/A: 1.6 AI max william: 310.7 cm/sec LV V1 max: 62.1 cm/sec PA V2 max: 73.1 cm/sec AI max P.6 mmHg LV V1 max P.5 mmHg AI dec slope: 213.8 cm/sec2 AI P1/2t: 425.7 msec PI end-d william: 101.6 cm/sec TR max william: 248.3 cm/sec TR max P.7 mmHg Interpretation Summary The estimated ejection fraction is 40 %. There is evidence of diastolic dysfunction. There is moderate global hypokinesis of the left ventricle. Mild (1+) mitral valve insufficiency. Mild tricuspid valve insufficiency. Pulmonary artery systolic pressure is 30-35 mmHg. The study was technically difficult. Contrast injection was performed. Mild (1+) eccentric aortic valve insufficiency. Trivial pulmonic valve insufficiency. The study was technically difficult. Contrast injection was performed. Ordering Physician: Prem Darden Referring Physician: ELLE COLLINS Performed By: Ernestina Lockett, ELEUTERIO, RVT
== END ==
PROVIDERS: PCP Nurse Practitioner Family; Referring Provider Specialist; Visit Provider Specialist
DX: I50.9 Heart failure, unspecified (principal); I48.20 Chronic atrial fibrillation, unspecified; I25.5 Ischemic cardiomyopathy; I25.10 Atherosclerotic heart disease of native coronary artery without angina pectoris; Z95.1 Presence of aortocoronary bypass graft
CPT/HCPCS: 93306; Q9957; A4216; C8929